=== PATIENT | male | born 1965 | race Caucasian/White ===

== ENCOUNTER 2023-07-16 12:34 | Emergency (ER) | payer OTHER, SELFPAY ==
[2023-07-16 12:43] VITALS: BP 152/94
[2023-07-16 13:15] VITALS: BMI 33.5
[2023-07-16 13:18] VITALS: BP 150/86
[2023-07-16 13:18] LABS: % Basophils 0.9 % (0-2); % Eosinophils 3.9 % (0-6); % Immature Granulocytes 0.3 % (0-0.5); % Lymphocytes 33.1 % (20.5-51.1); % Monocytes 11.3 % (1.7-9.3); % Neutrophils 50.5 % (42.2-75.2); Absolute Basophils 0.1 10^3/uL (0-0.2); Absolute Eosinophils 0.3 10^3/uL (0-0.7); Absolute Lymphocytes 2.1 10^3/uL (1.2-3.4); Absolute Monocytes 0.7 10^3/uL (0.1-0.6); Absolute Neutrophils 3.3 10^3/uL (1.4-6.5); Hemoglobin 15.3 g/dL (13.0-18.0); Mean Corp Hgb Conc. 35.6 g/dL (33.0-37.0); Mean Corpuscular Hgb 32.3 pg (27.0-31.0); Mean Corpuscular Volume 90.7 fL (80.0-94.0); Mean Platelet Volume 9.6 fL (7.4-10.4); Nucleated Red Blood Cells % 0 % (-); Platelet Count 221 10^3/uL (130-400); Red Blood Cell Count 4.74 10^6/uL (4.70-6.10); Red Cell Dist. Width 11.8 % (11.5-14.5); White Blood Cell Count 6.4 10^3/uL (4.8-10.8)
[2023-07-16 13:27] LABS: ALT (SGPT) 32 U/L (0-50); AST (SGOT) 29 U/L (17-59); Albumin 4.4 g/dl (3.5-5.0); Alkaline Phosphatase 39 U/L (38-126); Blood Urea Nitrogen 14 mg/dl (9-20); Calcium 10.4 mg/dl (8.4-10.2); Carbon Dioxide 28 mmol/L (22-30); Chloride 104 mmol/L (98-107); Estimated Creatinine Clearance > 125 ml/min; Glucose 97 mg/dl (70-99); Potassium 4.3 mmol/L (3.5-5.1); Sodium 139 mmol/L (135-145); Total Bilirubin 0.6 mg/dl (0.2-1.3); Total Protein 7.3 g/dl (6.3-8.2); eGFR > 60.00
[2023-07-16 13:29] LABS: Troponin I < 0.012 ng/ml
[2023-07-16 13:37] VITALS: BP 142/96
[2023-07-16 14:00] VITALS: BP 138/86
[2023-07-16 14:02] LABS: D-Dimer 1.88 ug/mlFEU (0.00-0.50)
--- NOTE | 2023-07-16 14:25 | ED.GENMED ---
History of Present Illness
General
Chief Complaint: Chest Pain
Source: patient and family (2 daughters at bedside providing some of the history)
Exam Limitations: none
Time Seen by Provider: 07/16/23 13:11
Nursing documentation reviewed up to this point in time: agreed with
Travel History
Have you had any contact with someone who has COVID-19?: No
Do you have any symptoms of coronavirus? Fever > 100 degrees, chills, cough, shortness of breath, sore throat, loss of taste or smell, muscle aches, or headache?: No
History of Present Illness
History of Present Illness:
57 yo male with hx of factor V Leiden, PE at age 32, HTN, HLD presents for chest tightness off and on for 3 weeks. Daughters say they feel his chest pain has progressed to more frequently as they note him holding his chest frequently and getting
red in the face. Patient walks several miles a day and is in denial of the severity of his chest pain as daughters call him out on it. He does have a history of GERD and takes Tums when he needs it.
He is attributing his chest pains to recent stress at work and the fact that his sister earlier today of an island of lung cancer.
Patient denies shortness of breath.
Past History
Past History
ED Past Medical History: HTN, Hypercholesterolemia and Other (Factor V Leiden, pulmonary embolus age 32, DVT)
ED Past Surgical History: Orthopedic
Social History
Tobacco: Non-smoker
Personal:
Living: alone
Review of Systems
Review of Systems
Allergies reviewed?: Yes
All Other Systems: ROS reviewed and negative except as documented in HPI and ROS
Constitutional: Denies fever or fatigue
Respiratory: Denies cough or trouble breathing
Cardiac: Reports chest pain; Denies palpitations or syncope
ABD/GI: Denies abdominal pain, nausea or vomiting
: Denies dysuria or difficulty voiding
Musculoskeletal: Reports no symptoms (denies pain in legs/calves)
Skin: Reports no symptoms
Neurological: Reports no symptoms
Phy Exam
Physical Exam
Physical Exam:
GENERAL: No acute distress. A&Ox3.
CONSTITUTIONAL: Afebrile.
EYES: PERRL, conjunctivae normal
ENMT: moist mucus membranes, Pharynx nl
RESPIRATORY: Regular respirations, nonlabored, lungs clear.
CARDIOVASCULAR: Regular rate and rhythm, no murmurs, no rubs.
GI: Soft, nontender, normal BS
MUSCULOSKELETAL: Moves with ease. Well perfused.
SKIN: Warm, dry, pink
PSYCH: Normal mood and affect. Well kept, interactive and appropriate
NEUROLOGIC: Awake, alert and oriented. No focal neurological deficits
Scores
Heart Score for Chest Pain Patients
STEMI patient?: No
History: Moderately Suspicious
ECG: Normal
Age: >45 - <65 years
Risk Factors: 1 or 2 Risk Factors
Troponin: </= Normal Limit
Heart Score for Chest Pain Patients: 3
Heart Score Risk: 2.5% MACE over next 6 weeks
Course
Orders/Labs/Results
Orders:
Orders
07/16/23 12:36
Electrocardiogram (*1) Urgent
Reason for Study: Chest Pain
EKG- Treatment ONCE
07/16/23 12:57
Complete Blood Count/With Diff Urgent
Comprehensive Metabolic Panel Urgent
Troponin I Urgent
07/16/23 13:35
CR Chest - 2 Views Urgent
Comment:
Reason For Exam: chest pains
07/16/23 13:39
D-Dimer Urgent
07/16/23 14:56
Urinalysis Reflex To Culture Urgent
Date Specimen was Collected: 07/16/23
Time Specimen was Collected: 14:54
Urine Microscopic Reflex Cult Urgent
07/16/23 15:09
CT Chest Pe Study Urgent
Comment:
Reason For Exam: chest pain, elevated dimer
Abnormal Lab Results
07/16/23 07/16/23 07/16/23
12:57 13:39 14:56
MCH 32.3 H pg
(27.0-31.0)
Absolute Monos (auto) 0.7 H 10^3/uL
(0.1-0.6)
Monocytes % 11.3 H %
(1.7-9.3)
D-Dimer 1.88 H ug/mlFEU
(0.00-0.50)
Calcium 10.4 H mg/dl
(8.4-10.2)
Ur Occult Blood Reflex Trace A
(Negative)
07/16/23 12:57
07/16/23 12:57
Vital Signs
Initial and Last Documented VS:
Initial Vital Signs
Temp Pulse Resp BP Pulse Ox
98.2 F 68 18 152/94 97
07/16/23 12:43 07/16/23 12:43 07/16/23 12:43 07/16/23 12:43 07/16/23 12:43
Last Documented Vital Signs
Temp Pulse Resp BP Pulse Ox
98.2 F 75 19 138/86 96
07/16/23 12:43 07/16/23 16:15 07/16/23 16:15 07/16/23 14:00 07/16/23 16:00
MDM/Problems Addressed
Differential Diagnosis Includes:
RI, Angina, PE
MDM/Problems Addressed:
57 yo male with hx of factor V Leiden, PE at age 32, HTN, HLD presents for chest tightness off and on for 3 weeks. Daughters say they feel his chest pain has progressed to more frequently as they note him holding his chest frequently and getting
red in the face. Patient walks several miles a day and is in denial of the severity of his chest pain as daughters call him out on it. He does have a history of GERD and takes Tums when he needs it.
He is attributing his chest pains to recent stress at work and the fact that his sister earlier today of an island of lung cancer.
Patient denies shortness of breath.
VSS
EKG: NSR
1:30 pm
Pt remains stable, comfortable
CBC normal
CMP normal
Troponin WNL
D dimer elevated 1.88
CXR NAD
5:[address] PE study radiology report read: No pulmonary embolism, normal
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
In further discussion with family, the patient is not anticoagulated as he has heterozygous, not homozygous factor B Leiden and takes a baby aspirin
His daughter made an appointment to see his line cleaner at [place] tomorrow
Pt is stable for discharge
Copies of EKG, CXR, CT report and labs sent with pt.
*Critical Care Note
Total Time (30-74mins, 75-104mins- exclusive of procedures): Not Applicable
ED Attending Note
-
Portions of this chart may have been created with voice recognition software.� Occasional wrong word or��sound alike� substitutions may have occurred due to the inherent limitations of voice recognition software.
Discharge Plan
Departure
Patient Disposition: Home (Routine Discharge)
Date of Disposition: 07/16/23
Time of Disposition: 17:56
Patient with high blood pressure during this ER visit?: No
Condition: Good
Discharge Problem:
Atypical chest pain
Instructions: Acid Reflux and GERD in Adults (DC), Chest Pain
Referrals:
[facility] [Other] - Tomorrow
Adolfo Tesfaye MD [Family Provider] -
Activity Restrictions/Additional Instructions:
As we discussed, keep your appointment with your line cleaner tomorrow.
Your workup here today shows nothing worrisome.
Interventions
Interventions:
*Risk Screen - Suicide Last Done: 07/16/23 13:15
*General Assessment Last Done: 07/16/23 13:15
*Neglect/Abuse Screening Last Done: 07/16/23 13:15
ED- Fall Risk Assessment Last Done: 07/16/23 13:15
*ED COVID-19 Vaccine History Last Done: 07/16/23 13:15
*Nursing Disposition Last Done: 07/16/23 18:14
ED- Cardiac Assessment Last Done: 07/16/23 13:15
Discharge Date and Time
Discharge Date/Time: 07/16/23 18:15
Print Language: CHINESE
[2023-07-16 15:15] LABS: Urine Albumin Negative (Neg - Trace); Urine Bilirubin Negative (Negative); Urine Character Clear (Clear); Urine Color Yellow; Urine Glucose Negative (Negative); Urine Ketone Negative (Negative); Urine Leukocyte Negative (Negative); Urine Nitrite Negative (Negative); Urine Occult Blood Trace (Negative); Urine Urobilinogen Negative (Neg - 1+)
[2023-07-16 15:24] LABS: Urine Mucus Few
[2023-07-16 15:25] LABS: Urine Hyaline Cast 0-2 /LPF (0-2); Urine Red Blood Cell 0-2 /HPF (0-2); Urine Squamous Cell 0-2 /LPF (Few); Urine White Cell 0-2 /HPF (0-5)
== END 2023-07-16 18:15 | disposition home or self-care (01) ==
LOC: EMR 12:34
PROVIDERS: Emergency Medicine; Registered Nurse; EMERGENCY PHYSICIAN Emergency Medicine; FAMILY PHYSICIAN Internal Medicine
DX: R07.89 Other chest pain (principal); D68.51 Activated protein C resistance; I10 Essential (primary) hypertension; Z63.4 Disappearance and death of family member; E78.00 Pure hypercholesterolemia, unspecified; Z56.6 Other physical and mental strain related to work; K21.9 Gastro-esophageal reflux disease without esophagitis; Z86.718 Personal history of other venous thrombosis and embolism; Z86.711 Personal history of pulmonary embolism
CPT/HCPCS: 99285; 71046; 71275; 80053; 81003; 81015; 84484; 85025; 85379; 93005; Q9967

== ENCOUNTER 2023-07-28 08:33 | Emergency (ER) | payer OTHER, SELFPAY ==
[2023-07-28 08:34] VITALS: BP 121/82
[2023-07-28 08:38] VITALS: BP 135/83
[2023-07-28 09:04] VITALS: BP 126/76
--- NOTE | 2023-07-28 09:13 | ED.GENMED ---
History of Present Illness
General
Chief Complaint: Throat Problem
Source: patient and family
Exam Limitations: none
Time Seen by Provider: 07/28/23 09:00
Nursing documentation reviewed up to this point in time: agreed with
History of Present Illness
History of Present Illness:
57-year-old male presents emergency room complaining of a lump in his throat that comes up when he coughs and feels like it blocks his airway. He states is not food or mucus. This began at 7 AM. Takes blood pressure medicines but does not know
the name of them. He had a stress test at [facility] this week.
Past History
Past History
ED Past Medical History: HTN, Hypercholesterolemia and Other (Factor V Leiden, pulmonary embolus age 32, DVT)
ED Past Surgical History: Orthopedic
Social History
Tobacco: Non-smoker
Alcohol: Occasional
Drug: None
Personal:
Living: alone
Review of Systems
Review of Systems
Allergies reviewed?: Yes
All Other Systems: Not applicable
Constitutional: Reports no symptoms
EENT: Reports other (Throat swelling)
Respiratory: Reports no symptoms
Cardiac: Reports no symptoms
ABD/GI: Reports no symptoms
: Reports no symptoms
Musculoskeletal: Reports no symptoms
Skin: Reports no symptoms
Neurological: Reports no symptoms
Endocrine: Reports no symptoms
Hematologic/Lymphatic: Reports no symptoms
Psychiatric: Reports no symptoms
Phy Exam
Physical Exam
Physical Exam:
Physical Exam
General: no apparent distress, not acutely ill
Neck: supple. no meningeal signs. normal posterior pharynx
Heart: s1/s2 regular rate and rhythm, no murmur. equal radial
pulses.
HEENT: Pupils equal round reactive to light, EOMI, mild uvular edema
Lungs: no acute respiratory distress. clear bilaterally
Abdomen: normal bowel sounds. not tender. no CVAT
Neuro: alert and oriented. no focal neurological deficits cranial nerves II through XII intact
Skin: no rash
Psychiatric: well kept. interactive and cooperative
Extremities: no edema. no calf tenderness. negative homans. good distal pulses
Course
Orders/Labs/Results
Orders:
Orders
07/28/23 09:10
CT Neck With Iv Contrast Urgent
Comment:
Reason For Exam: throat swelling, uvular edema
Cardiac Monitoring- Treatment ONCE
IV Insert/Care/Rem.- Treatment PRN
Dexamethasone Sod Phosphate [Decadron] 10 mg IV NOW STA
Diphenhydramine [Benadryl] 25 mg IV NOW STA
Famotidine [Pepcid] 20 mg IV NOW STA
Pulse Ox/cont/shift [RESP] Stat
Quantity: 1
07/28/23 09:19
Basic Metabolic Panel Urgent
Complete Blood Count/With Diff Urgent
Abnormal Lab Results
07/28/23
09:19
MCH 32.3 H pg
(27.0-31.0)
Neutrophils % 37.3 L %
(42.2-75.2)
Monocytes % 10.9 H %
(1.7-9.3)
Eosinophils % 10.5 H %
(0-6)
07/28/23 09:19
07/28/23 09:19
Vital Signs
Initial and Last Documented VS:
Initial Vital Signs
Temp Pulse Resp BP Pulse Ox
98.9 F 80 22 121/82 97
07/28/23 08:34 07/28/23 08:34 07/28/23 08:34 07/28/23 08:34 07/28/23 08:34
Last Documented Vital Signs
Temp Pulse Resp BP Pulse Ox
98.8 F 72 17 125/76 96
07/28/23 08:38 07/28/23 11:15 07/28/23 11:15 07/28/23 11:10 07/28/23 11:15
MDM/Problems Addressed
Differential Diagnosis Includes:
Tonsillar abscess, angioedema
MDM/Problems Addressed:
57-year-old male with angioedema, improved after observation, IV Decadron and Benadryl. Stable for discharge. Patient to discontinue lisinopril use.
Chronic conditions affecting care: HTN
Acute Exacerbation and/or Progression of Chronic Illness: HTN
*Radiology
Radiology exam reviewed: radiology read reviewed (CT neck shows mild angioedema)
*Pulse Oximetry
Patient hypoxic: no
*EKG
Interpreted by ED Provider?: NA
*[employer] Interpretation
Rate: [employer]- N/A
*Critical Care Note
Total Time (30-74mins, 75-104mins- exclusive of procedures): Not Applicable
Patient Management
Social determinants of health affecting care: Living situation
Escalation/DeEscalation of care consider admission/obs:
admit not indicated
ED Attending Note
-
Portions of this chart may have been created with voice recognition software.� Occasional wrong word or��sound alike� substitutions may have occurred due to the inherent limitations of voice recognition software.
Discharge Plan
Departure
Patient Disposition: Home (Routine Discharge)
Date of Disposition: 07/28/23
Time of Disposition: 12:09
Patient with high blood pressure during this ER visit?: Yes
Condition: Good
Discharge Problem:
Angioedema
Instructions: Angioedema, BLOOD PRESSURE
Prescriptions:
New
pantoprazole [Protonix] 40 mg tablet,delayed release (DR/EC)
40 mg PO DAILY Qty: 30 0RF
prednisone 50 mg tablet
50 mg PO DAILY Qty: 5 0RF
Referrals:
Adolfo Tesfaye MD [Family Provider] - Call in 1-3 days for appt
Interventions
Interventions:
*Risk Screen - Suicide Last Done: 07/28/23 09:06
*General Assessment Last Done: 07/28/23 08:38
*Neglect/Abuse Screening Last Done: 07/28/23 09:06
ED- Fall Risk Assessment Last Done: 07/28/23 13:13
*ED COVID-19 Vaccine History Last Done: 07/28/23 08:38
*Nursing Disposition Last Done: 07/28/23 13:13
ED-EENT Assessment Last Done: 07/28/23 09:09
ED- Pulmonary Assessment Last Done: 07/28/23 09:06
Discharge Date and Time
Discharge Date/Time: 07/28/23 13:14
Print Language: FAROESE
[2023-07-28] MEDS: DECADRON 10 MG IV (09:14)
[2023-07-28] MEDS: BENADRYL 25 MG IV (09:15)
[2023-07-28] MEDS: PEPCID 20 MG IV (09:15)
[2023-07-28 09:19] VITALS: BP 140/88
[2023-07-28 09:32] LABS: % Basophils 0.9 % (0-2); % Eosinophils 10.5 % (0-6); % Immature Granulocytes 0.4 % (0-0.5); % Monocytes 10.9 % (1.7-9.3); % Neutrophils 37.3 % (42.2-75.2); Absolute Basophils 0.1 10^3/uL (0-0.2); Absolute Eosinophils 0.6 10^3/uL (0-0.7); Absolute Lymphocytes 2.1 10^3/uL (1.2-3.4); Absolute Monocytes 0.6 10^3/uL (0.1-0.6); Hematocrit 45.6 % (39.0-52.0); Hemoglobin 15.8 g/dL (13.0-18.0); Mean Corp Hgb Conc. 34.6 g/dL (33.0-37.0); Mean Corpuscular Hgb 32.3 pg (27.0-31.0); Mean Corpuscular Volume 93.3 fL (80.0-94.0); Mean Platelet Volume 9.6 fL (7.4-10.4); Nucleated Red Blood Cells % 0 % (-); Platelet Count 194 10^3/uL (130-400); Red Blood Cell Count 4.89 10^6/uL (4.70-6.10); Red Cell Dist. Width 11.8 % (11.5-14.5); White Blood Cell Count 5.3 10^3/uL (4.8-10.8)
[2023-07-28 10:00] VITALS: BP 123/87
[2023-07-28 10:00] LABS: Blood Urea Nitrogen 14 mg/dl (9-20); Calcium 9.9 mg/dl (8.4-10.2); Carbon Dioxide 25 mmol/L (22-30); Chloride 107 mmol/L (98-107); Glucose 96 mg/dl (70-99); Sodium 141 mmol/L (135-145); eGFR > 60.00
[2023-07-28 11:10] VITALS: BP 125/76
== END 2023-07-28 13:14 | disposition home or self-care (01) ==
LOC: EMR 08:33
PROVIDERS: EMERGENCY PHYSICIAN Emergency Medicine; FAMILY PHYSICIAN Internal Medicine
DX: T78.3XXA Angioneurotic edema, initial encounter (principal); I10 Essential (primary) hypertension; E78.00 Pure hypercholesterolemia, unspecified; D68.51 Activated protein C resistance; Z86.711 Personal history of pulmonary embolism; Z86.718 Personal history of other venous thrombosis and embolism; Z79.899 Other long term (current) drug therapy
CPT/HCPCS: 99285; 96374; 96375 ×2; 70491; 80048; 85025; Q9967

== ENCOUNTER 2024-01-24 15:31 | Day surgery (SDC) | payer OTHER, SELFPAY ==
[2024-01-24] VITALS (14 sets, daily range): BP systolic 128–172; BP diastolic 67–97; BMI 33.5
--- NOTE | 2024-01-24 09:34 | ED.GENMED ---
History of Present Illness
General
Chief Complaint: Flank Pain
Source: patient
Exam Limitations: none
Time Seen by Provider: 01/24/24 09:24
Nursing documentation reviewed up to this point in time: agreed with
History of Present Illness
History of Present Illness:
58-year-old male with left flank pain for the past 3 weeks. No fevers. He has a history of kidney stones in the past.
Past History
Past History
ED Past Medical History: HTN, Hypercholesterolemia and Other (Factor V Leiden, pulmonary embolus age 32, DVT)
ED Past Surgical History: Orthopedic
Social History
Tobacco: Non-smoker
Alcohol: Occasional
Drug: None
Personal:
Living: alone
Review of Systems
Review of Systems
Allergies reviewed?: Yes
All Other Systems: Not applicable
Constitutional: Reports no symptoms
EENT: Reports no symptoms
Respiratory: Reports no symptoms
Cardiac: Reports no symptoms
ABD/GI: Reports no symptoms
: Reports flank pain
Musculoskeletal: Reports no symptoms
Skin: Reports no symptoms
Neurological: Reports no symptoms
Endocrine: Reports no symptoms
Hematologic/Lymphatic: Reports no symptoms
Psychiatric: Reports no symptoms
Phy Exam
Physical Exam
Physical Exam:
Physical Exam
General: Febrile, appears uncomfortable
Neck: supple. no meningeal signs. normal posterior pharynx
Heart: s1/s2 regular rate and rhythm, no murmur. equal radial
pulses.
HEENT: Pupils equal round reactive to light, EOMI
Lungs: no acute respiratory distress. clear bilaterally
Abdomen: normal bowel sounds. not tender. no CVAT
Neuro: alert and oriented. no focal neurological deficits cranial nerves II through XII intact
Skin: no rash
Psychiatric: well kept. interactive and cooperative
Extremities: no edema. no calf tenderness. negative homans. good distal pulses
Course
Orders/Labs/Results
Orders:
Orders
01/24/24 09:33
CT Abd/pel Without Iv Or Oral Urgent
Comment:
Reason For Exam: left flank pain 3 weeks
01/24/24 09:46
Complete Blood Count/With Diff Urgent
Urinalysis Reflex To Culture Urgent
Date Specimen was Collected: 01/24/24
Time Specimen was Collected: 09:35
01/24/24 Lunch
NPO
Reason for opting out of Realtime [employer]er order writing: Provider Decision
Allow oral meds: No
Allow clear liquids: No
NPO with Ice Chips: No
01/24/24 10:09
Ketorolac [Toradol] 15 mg IV NOW STA
01/24/24 10:20
Comprehensive Metabolic Panel Urgent
01/24/24 14:37
HYDROmorphone [Dilaudid] 1 mg IV Q3HPRN PRN
Abnormal Lab Results
01/24/24 01/24/24
09:46 10:20
MCH 32.4 H pg
(27.0-31.0)
Absolute Monos (auto) 0.7 H 10^3/uL
(0.1-0.6)
Monocytes % 12.4 H %
(1.7-9.3)
Glucose 114 H mg/dl
(70-99)
Alkaline Phosphatase 35 L U/L
(38-126)
01/24/24 09:46
01/24/24 10:20
Vital Signs
Initial and Last Documented VS:
Initial Vital Signs
Temp Pulse Resp BP Pulse Ox
97.9 F 75 16 172/97 98
01/24/24 08:17 01/24/24 08:17 01/24/24 08:17 01/24/24 08:17 01/24/24 08:17
Last Documented Vital Signs
Temp Pulse Resp BP Pulse Ox
97.9 F 64 15 138/90 99
01/24/24 08:17 01/24/24 14:00 01/24/24 14:00 01/24/24 14:00 01/24/24 14:00
MDM/Problems Addressed
Differential Diagnosis Includes:
Urinary tract infection, ureteral obstruction
MDM/Problems Addressed:
58-year-old male with left ureteral calculus, taken to OR by Dr. Walter for stent. No signs UTI
Chronic conditions affecting care: HTN
*Radiology
Radiology exam reviewed: radiology read reviewed (CT scan shows 4 mm stone at left UPJ)
*Pulse Oximetry
Patient hypoxic: no
*Professor Of Environmental Science Interpretation
Rate: Professor Of Environmental Science- N/A
*Critical Care Note
Total Time (30-74mins, 75-104mins- exclusive of procedures): 30
comment:
Critical care statement: A total of 30 minutes of critical care time was provided for this patient. This includes management of unstable vital signs, evaluation of the patient at bedside, reviewing the patient's pertinent medical records, discussion
with consultants, review of old EKGs and review of pertinent medical records. This time with separate from time utilized to perform the aforementioned documented procedures
Patient Management
Social determinants of health affecting care: Living situation and Strong social support
Discussion with other providers: Warehouse Worker 2Nd Shift (Urologist)
Escalation/DeEscalation of care consider admission/obs:
Admission to operating room indicated
ED Attending Note
-
Portions of this chart may have been created with voice recognition software.� Occasional wrong word or��sound alike� substitutions may have occurred due to the inherent limitations of voice recognition software.
Discharge Plan
Departure
Patient Disposition: OR
Date of Disposition: 01/24/24
Time of Disposition: 13:00
Admit to: OR
Presentation/result/management discussed w/ accepting MD/DO: Dr. Walter, urology
Patient with high blood pressure during this ER visit?: Yes
Condition: Good
Discharge Problem:
Calculus of proximal left ureter
Prescriptions:
No Action
losartan 50 mg Tablet
25 mg PO QPM
aspirin 81 mg Tablet,Delayed Release (Dr/Ec)
81 mg PO QPM
[place] 3 Fish Oil 684-1,200 mg Capsule,Delayed Release(Dr/Ec)
1 cap PO DAILY
Referrals:
Adolfo Tesfaye MD [Family Provider] -
Interventions
Interventions:
*Risk Screen - Suicide Last Done: 01/24/24 08:17
*General Assessment Last Done: 01/24/24 15:30
*Neglect/Abuse Screening Last Done: 01/24/24 08:17
ED- Fall Risk Assessment Last Done: 01/24/24 15:30
*ED COVID-19 Vaccine History Last Done: 01/24/24 09:34
*Nursing Disposition Last Done: 01/24/24 15:30
FK-Kvmthl-Edgbwfrenn Assessment Last Done: 01/24/24 09:35
ED-Male Genitourinary Assessment Last Done: 01/24/24 09:35
Discharge Date and Time
Discharge Date/Time: 01/24/24 15:31
Print Language: TAMAZIGHT
[2024-01-24 09:59] LABS: % Basophils 1.2 % (0-2); % Eosinophils 5.2 % (0-6); % Immature Granulocytes 0.3 % (0-0.5); % Lymphocytes 30.9 % (20.5-51.1); % Monocytes 12.4 % (1.7-9.3); Absolute Basophils 0.1 10^3/uL (0-0.2); Absolute Eosinophils 0.3 10^3/uL (0-0.7); Absolute Lymphocytes 1.8 10^3/uL (1.2-3.4); Absolute Monocytes 0.7 10^3/uL (0.1-0.6); Absolute Neutrophils 2.9 10^3/uL (1.4-6.5); Hematocrit 45.1 % (39.0-52.0); Hemoglobin 15.6 g/dL (13.0-18.0); Mean Corp Hgb Conc. 34.6 g/dL (33.0-37.0); Mean Corpuscular Hgb 32.4 pg (27.0-31.0); Mean Corpuscular Volume 93.6 fL (80.0-94.0); Mean Platelet Volume 9.7 fL (7.4-10.4); Nucleated Red Blood Cells % 0 % (-); Platelet Count 240 10^3/uL (130-400); Red Blood Cell Count 4.82 10^6/uL (4.70-6.10); White Blood Cell Count 5.7 10^3/uL (4.8-10.8)
[2024-01-24] MEDS: TORADOL 15 MG IV (10:24)
[2024-01-24 10:44] LABS: Urine Albumin Negative (Neg - Trace); Urine Bilirubin Negative (Negative); Urine Character Clear (Clear); Urine Color Yellow; Urine Glucose Negative (Negative); Urine Ketone Negative (Negative); Urine Leukocyte Negative (Negative); Urine Nitrite Negative (Negative); Urine Occult Blood Negative (Negative); Urine Urobilinogen Negative (Neg - 1+); Urine pH 6.5 (5.0-9.0)
[2024-01-24 10:51] LABS: ALT (SGPT) 44 U/L (0-50); AST (SGOT) 41 U/L (17-59); Albumin 4.8 g/dl (3.5-5.0); Alkaline Phosphatase 35 U/L (38-126); Blood Urea Nitrogen 13 mg/dl (9-20); Carbon Dioxide 24 mmol/L (22-30); Chloride 104 mmol/L (98-107); Estimated Creatinine Clearance > 125 ml/min; Glucose 114 mg/dl (70-99); Potassium 4.6 mmol/L (3.5-5.1); Sodium 137 mmol/L (135-145); Total Bilirubin 1.1 mg/dl (0.2-1.3); Total Protein 7.7 g/dl (6.3-8.2); eGFR > 60.00
--- NOTE | 2024-01-24 15:47 | HP.FOC2 ---
Focused History & Physical
Chief Complaint
HPI:
Chief Complaint:
left flank pain
HPI / Indication for Planned Procedure:
pt presents with 3 weeks hx of left renal colic
ct shows stone at left upj
pain has been difficult to control
Relevant Past Medical History: Other (dvt/kidney stones)
Relevant Social History: Negative
Relevant Family History: Negative
Relevant Past Surgical History: Positive for (carpal tunnel/shoulder surgery/ureteroscopy and stent)
Review of Systems
Review of Pertinent Systems: All Systems Negative Except for the Following Positives (flank pain)
Medication
See Medication form for detailed medications: Yes
Medication List (including Herbals & OTC):
aspirin 81 mg tablet,delayed release 81 mg PO QPM 01/24/24
losartan 50 mg tablet 25 mg PO QPM 01/24/24
omega-3 fatty acids-fish oil 684 mg-1,200 mg capsule,delayed release 1 cap PO DAILY 01/24/24
Medications Reviewed: Yes
Allergies and Reactions
Patient has Allergies: No
Noted Allergies and Reactions:
Allergy/AdvReac Type Severity Reaction Status Date / Time
No Known Allergies Allergy Verified 01/24/24 08:18
Pertinent Physical Exam
All Other Systems: Negative
Head/Neck: Normal
Lungs: Normal
Heart: Normal
Abdomen: Normal
Extremities: Normal
Neurological: Normal
Diagnosis / Assessment
stone
Plan / Procedure
OR for stent/possible ureteroscopy
risks, benefits, alternatives and disabilities reviewed
Anesthesia/Sedation to be done by Anesthesia Provider: Yes
--- NOTE | 2024-01-24 17:10 | W.IMMPOSTOP ---
Surgical Immed Post Op Note
-
Primary Surgeon:
susan
Assisting Surgeon:
Pre-op Diagnosis:
left ureteral stone- upj
Post-op Diagnosis:
left ureteral stone with upj scar/obstruction
Procedure Performed:
cysto/left retrograde/dilation of upj/laser litho and stent
Anesthesia Type:
gen
Specimen / Cultures:
none
Estimated Blood Loss:
2cc
Complications:
none
Operative Findings:
very stenotic/scarred left upj
dilated
stone fragmented
stent placed
for discharge tonight- f/u 2 weeks for stent removal
[2024-01-24] MEDS: FLOMAX 0.4 MG PO (17:42)
[2024-01-24] MEDS: Pyridium 200 MG PO (17:42)
== END 2024-01-24 19:10 | disposition home or self-care (01) ==
LOC: SDS 15:31
PROVIDERS: EMERGENCY PHYSICIAN Emergency Medicine; FAMILY PHYSICIAN Internal Medicine
DX: N20.2 Calculus of kidney with calculus of ureter (principal)
CPT/HCPCS: 52356; 74176; 74420; 76000; 80053; 81003; 85025; 96374; 99291; C1894; C2617

== ENCOUNTER 2024-02-02 06:02 | Inpatient (IN) | payer OTHER, SELFPAY ==
[2024-02-01] VITALS (9 sets, daily range): BP systolic 87–165; BP diastolic 54–94; BMI 32.8
--- NOTE | 2024-02-01 20:28 | ED.GENMED ---
ED Provider Triage
<Jose Manuel Gloria Jr., PA-C - Last Filed: 02/02/24 15:35>
-
Patient seen by provider in Triage?: Seen in Triage
Attestation: A medical screening examination has been initiated by a qualified medical provider. Based on the assessment performed at this time, it has been determined that an emergent medical condition may exist and the patient has been informed
that further medical evaluation and possible additional diagnostic testing may be needed.
HPI: 58-year-old male presenting to the emergency department concerns of central chest pain with radiation to the right arm prior to arrival. This seemed to happen after having a few alcoholic drinks. Did vomit 1 time. Denies diaphoresis or
shortness of breath. Does not remote history of PE and apparent history of factor V Leiden. Concerning this plan for troponin chest x-ray labs and D-dimer concerning history of factor V Leiden history of PE.
GENERAL: Alert , in no apparent distress
EYE: No visual abnormalities.
NECK: Trachea midline
ENT: No visible abnormalities.
LUNGS: No acute respiratory distress
NEUROLOGICAL: Alert and oriented
SKIN: Skin intact. No visible changes.
MUSCULOSKELETAL: Moving extremities normally
PSYCH: Normal and appropriate interaction.
This is a medical evaluation conducted in person to initiate diagnostic evaluation and provide initial therapeutics. Please see further documentation by the treating clinician.
History of Present Illness
<Jose Manuel Gloria Jr., PA-C - Last Filed: 02/02/24 15:35>
General
Chief Complaint: Chest Pain
Time Seen by Provider: 02/01/24 23:12
<Rosanna Jimenez MD - Last Filed: 02/07/24 08:47>
General
Source: patient and family
History of Present Illness
History of Present Illness:
58-year-old male who states that around 7 PM he got the gradual onset of chest 'tightness' associated with vomiting and discomfort in his right arm. Symptoms lasted about an hour or so and then resolved completely. Then, just a few moments ago,
the pain returned, same quality, in the center of his chest without radiation, exacerbating, relieving factors. Is not pleuritic in nature. He has noted mild diaphoresis at this time as well. He denies nausea, vomiting, dyspnea, back pain, neck
pain, jaw pain, leg swelling, or other complaints.
Past History
<Jose Manuel Gloria Jr., PA-C - Last Filed: 02/02/24 15:35>
Past History
ED Past Medical History: HTN, Hypercholesterolemia and Other (Factor V Leiden, pulmonary embolus age 32, DVT)
ED Past Surgical History: Orthopedic
Social History
Tobacco: Non-smoker
Alcohol: Occasional
Drug: None
Personal:
Living: alone
Phy Exam
<Rosanna Jimenez MD - Last Filed: 02/07/24 08:47>
Physical Exam
Physical Exam:
GENERAL: Alert , appears slightly uncomfortable
EYE: pupils equal and reactive
NECK: Supple, no significant adenopathy.
ENT: o/p clr, mmm.
CARDIAC: Regular rate and rhythm .
LUNGS: Clear breath sounds bilaterally, no acute respiratory distress, no wheezes/rales/rhonchi
ABDOMEN: Soft, without focal tenderness, no r/g, no cvat
NEUROLOGICAL: Alert and oriented, no focal neuro deficits
SKIN: Warm and slightly diaphoretic, skin intact.
MUSCULOSKELETAL: No edema, well perfused.
PSYCH: Normal and appropriate interaction.
Scores
<Rosanna Jimenez MD - Last Filed: 02/07/24 08:47>
Heart Score for Chest Pain Patients
STEMI patient?: Not applicable
Course
<Jose Manuel Gloria Jr., PA-C - Last Filed: 02/02/24 15:35>
Orders/Labs/Results
Orders:
Orders
02/01/24 20:09
EKG [Electrocardiogram (*1)] Urgent
Reason for Study: Chest Pain
02/01/24 20:10
EKG- Treatment ONCE
02/01/24 20:27
Electrocardiogram (*1) Stat
Reason for Study: Other
Other Reason for Exam: chest pain
EKG- Treatment ONCE
02/01/24 21:01
Complete Blood Count/With Diff Urgent
Comprehensive Metabolic Panel Urgent
D-Dimer Urgent
Magnesium Urgent
NT-proBNP Urgent
Troponin I Urgent
02/01/24 23:14
EKG- Treatment ONCE
02/01/24 23:21
Aspirin 325 mg PO NOW STA
Nitroglycerin Sublingual [Nitrostat (Sublingual)] 0.4 mg .ROUTE .STK-MED ONE
Nitroglycerin Sublingual [Nitrostat (Sublingual)] 0.4 mg SL [id number] PRN
02/01/24 23:55
Troponin I Urgent
02/02/24 00:24
Electrocardiogram (*1) Urgent
Reason for Study: Chest Pain
02/02/24 00:25
Morphine Sulfate 4 mg IV NOW STA
02/02/24 00:45
CT Chest Angio W/wo Iv Contras Urgent
Comment:
Reason For Exam: cp to back, t/c dissection
02/02/24 00:46
Nitroglycerin 100 mg/250 ml [Nitroglycerin Premix] 100 mg in 250 ml IV NOW
Initial dose in mcg/min, then titrate:: 5
Titrate to keep:: SBP < 160 mmHg
Titrate by mcg/min:: 5 mcg/min, may increase by 10 mcg/min if dose > 20 mcg/min
Frequency of titrations (minutes):: every 3-5 minutes
Maximum dose in mcg/min:: 200
Begin to taper infusion when:: Remained at goal for 2hrs
Taper by mcg/min:: 5 mcg/min
Frequency of taper (minutes) if patient maintains goal:: 30
Taper to off?: Yes
If infusion off & no longer maintaining goal:: Contact Provider
02/02/24 01:55
Morphine Sulfate 4 mg IV NOW STA
02/02/24 02:30
Electrocardiogram (*1) Urgent
Reason for Study: Chest Pain
02/02/24 02:31
EKG- Treatment ONCE
02/02/24 03:58
Troponin I Urgent
02/02/24 04:02
Morphine Sulfate 4 mg .ROUTE .STK-MED ONE
02/02/24 04:06
Morphine Sulfate 4 mg IV NOW STA
02/02/24 05:46
Admit/Transfer Patient As Directed
Co-Sign Provider:
Level of Care: Inpatient admission
Assign to:: IVU
Physician / Group: Irene
Diagnosis: ACS
Reason for Hospitalization: ACS
Expected length of stay greater than two midnights?: Yes
ELOS- Estimated Length of Stay in days: 3
I certify the patient meets the requirements for IP care: Yes
PRN Pain Medication Management As Directed
May give lesser potent ordered pain med per pt: Yes
preference::
Protocol:: Medication orders for pain may be administered in a
manner that supports deferring to patient preference
when the pt is:
- Requesting an ordered lesser potent pain medication.
Least to most potent pain medications are defined
as: acetaminophen < NSAID < tramadol < opioids
(morphine, oxycodone, hydromorphone).
- Requesting a lesser dose of the same medication IF
ORDERED.
- Requesting a less intrusive route of administration
if both routes are prescribed by the provider (PO <
IV).
02/02/24 05:47
Code Status As Directed
Resuscitation Status: Full Code
02/02/24 05:49
Heparin 4,000 units IV NOW STA
Heparin Protocol- PTT Orders As Directed
PTT per Heparin protocol: -Obtain CBC and baseline PTT - if not already collected.
-Obtain PTT 6 hours from start of infusion. Then, every 6 hours until 2 consecutive
PTT's are therapeutic. Then, PTT Daily.
-With each rate change, obtain PTT every 6 hours until 2 consecutive PTT's are
therapeutic. Then, PTT Daily.
Notify MD As Directed
Notify physician if: PTT is greater than or equal to 200.
02/02/24 Breakfast
NPO
Allow oral meds: Yes
Allow clear liquids: Sips of Clears
Heparin 56620 Units/250 ml 25,000 units in 250 ml IV PER PROTOCOL
Weight to be used for heparin protocol in kilograms (kg):: 106.594
Protocol:: Cardiac Tx/Acute Coronary
PTT Goal Range to be used:: PTT 73 to 111 seconds
Order type:: Initial
INITIAL Infusion Dose (UNITS/KG/hr) & then follow protocol:: 12 units/kg/hr
Infusion Dose in UNITS/hr & then follow protocol (UNITS/hr):: 1,000
INFUSION RATE in mL/hr & then follow protocol (mL/hr):: 10
PTT less than or equal to 64 seconds:: Increase rate by 200 units/hr (+ 2 mL/hr)
PTT 64.1 to 72.9 seconds:: Increase rate by 100 units/hr (+ 1 mL/hr)
PTT 73 to 111 seconds:: Target Range. No change in rate.
PTT 111.1 to 130.9 seconds:: Decrease rate by 100 units/hr (- 1 mL/hr)
PTT 131 to 199.9 seconds:: HOLD for 1 hr. Then decrease rate by 200 units/hr (- 2 mL/hr)
PTT greater than or equal to 200 seconds:: HOLD for 2 hrs & Notify Provider. Then decrease by 200 units/hr (-
2 mL/hr)
Lab follow-up:: Each change, PTT q6h until 2 consecutive are therapeutic. Then PTT
daily.
02/02/24 06:27
Complete Blood Count/No Diff Urgent
Comment: Obtain baseline before beginning heparin infusion if not already collected
PTT Urgent
Comment: Obtain baseline before beginning heparin infusion if not already collected
02/02/24 08:03
Acetaminophen [Tylenol] 650 mg PO Q4HPRN PRN
Aspirin Chewable [Low Strength Aspirin] 81 mg PO DAILY
Metoprolol Xl [Toprol Xl] 25 mg PO BID
Morphine Sulfate 2 mg IV Q4HPRN PRN
Nitroglycerin 100 mg/250 ml [Nitroglycerin Premix] 100 mg in 250 ml IV PER PROTOCOL
Currently infusing. Continue current dose and titrate:: Yes
Titrate to keep:: Chest Pain Free
Titrate by mcg/min:: 5 mcg/min, may increase by 10 mcg/min if dose > 20 mcg/min
Frequency of titrations (minutes):: every 3-5 minutes
Maximum dose in mcg/min:: 200
Begin to taper infusion when:: Remained at goal for 2hrs
Taper by mcg/min:: 5 mcg/min
Frequency of taper (minutes) if patient maintains goal:: 30
Taper to off?: Yes
If infusion off & no longer maintaining goal:: Contact Provider
02/02/24 08:03
CARDIOLOGY CONSULT Routine
Consulting Provider: Richard Cardenas
Was physician already notified: No
Reason for consult: ACS
Consult Notification Routine
Specialty to Notify: Cardiology
Date consulting provider notified: 02/02/24
Time consulting provider notified: 08:16
Notified:: Provider
Activity As Directed
Activity Level: Bedrest
EKG with chest pain [ECG as needed] As Directed
ECG as needed for:: Chest Pain
I/O [Intake/ Output] As Directed
Frequency: Per unit guidelines
Vital Signs As Directed
Frequency: Per unit guidelines
Weight As Directed
Frequency: Daily
Oxygen Therapy [O2 Therapy] [RESP] Routine
Titrate/Wean O2 to maintain O2 sat greater than (%): 94
DX Deep Vein Thrombosis Video Routine
02/02/24 12:31
Glycohemoglobin (HgbA1c) Routine
02/02/24 18:00
Atorvastatin [Lipitor] 40 mg PO QPM
Losartan [Cozaar] 25 mg PO QPM
02/03/24 03:18
Basic Metabolic Panel IN AM
Cardiovascular Evaluation IN AM
02/03/24 03:19
Complete Blood Count/No Diff IN AM
02/03/24 06:00
EKG [Electrocardiogram (*1)] IN AM
Reason for Study: Chest Pain
02/04/24 04:44
Complete Blood Count/No Diff Q2D
Comment: Notify MD if platelet count is <130,000 or decreases by 50% from baseline
Abnormal Lab Results
02/01/24 02/02/24
21:01 03:58
RBC 4.64 L 10^6/uL
(4.70-6.10)
MCH 33.0 H pg
(27.0-31.0)
Abs Immat Gran (auto) 0.1 H 10^3/uL
(0-0.05)
Absolute Monos (auto) 0.9 H 10^3/uL
(0.1-0.6)
Immature Gran % 1.4 H %
(0-0.5)
Monocytes % 14.2 H %
(1.7-9.3)
Glucose 190 H mg/dl
(70-99)
Troponin I 0.090 H* D ng/ml
02/01/24 21:01
02/01/24 21:01
Vital Signs
Initial and Last Documented VS:
Initial Vital Signs
Temp Pulse Resp BP Pulse Ox
98.1 F 101 18 165/94 99
02/01/24 20:27 02/01/24 20:27 02/01/24 20:27 02/01/24 20:27 02/01/24 20:27
Last Documented Vital Signs
Temp Pulse Resp BP Pulse Ox
97.5 F 78 18 108/62 95
02/05/24 11:09 02/05/24 12:00 02/05/24 11:09 02/05/24 11:04 02/05/24 11:09
<Rosanna Jimenez MD - Last Filed: 02/07/24 08:47>
Orders/Labs/Results
Orders:
Orders
02/01/24 20:09
EKG [Electrocardiogram (*1)] Urgent
Reason for Study: Chest Pain
02/01/24 20:10
EKG- Treatment ONCE
02/01/24 20:27
Electrocardiogram (*1) Stat
Reason for Study: Other
Other Reason for Exam: chest pain
EKG- Treatment ONCE
02/01/24 21:01
Complete Blood Count/With Diff Urgent
Comprehensive Metabolic Panel Urgent
D-Dimer Urgent
Magnesium Urgent
NT-proBNP Urgent
Troponin I Urgent
02/01/24 23:14
EKG- Treatment ONCE
02/01/24 23:21
Aspirin 325 mg PO NOW STA
Nitroglycerin Sublingual [Nitrostat (Sublingual)] 0.4 mg .ROUTE .STK-MED ONE
Nitroglycerin Sublingual [Nitrostat (Sublingual)] 0.4 mg SL [id number] PRN
02/01/24 23:55
Troponin I Urgent
02/02/24 00:24
Electrocardiogram (*1) Urgent
Reason for Study: Chest Pain
02/02/24 00:25
Morphine Sulfate 4 mg IV NOW STA
02/02/24 00:45
CT Chest Angio W/wo Iv Contras Urgent
Comment:
Reason For Exam: cp to back, t/c dissection
02/02/24 00:46
Nitroglycerin 100 mg/250 ml [Nitroglycerin Premix] 100 mg in 250 ml IV NOW
Initial dose in mcg/min, then titrate:: 5
Titrate to keep:: SBP < 160 mmHg
Titrate by mcg/min:: 5 mcg/min, may increase by 10 mcg/min if dose > 20 mcg/min
Frequency of titrations (minutes):: every 3-5 minutes
Maximum dose in mcg/min:: 200
Begin to taper infusion when:: Remained at goal for 2hrs
Taper by mcg/min:: 5 mcg/min
Frequency of taper (minutes) if patient maintains goal:: 30
Taper to off?: Yes
If infusion off & no longer maintaining goal:: Contact Provider
02/02/24 01:55
Morphine Sulfate 4 mg IV NOW STA
02/02/24 02:30
Electrocardiogram (*1) Urgent
Reason for Study: Chest Pain
02/02/24 02:31
EKG- Treatment ONCE
02/02/24 03:58
Troponin I Urgent
02/02/24 04:02
Morphine Sulfate 4 mg .ROUTE .STK-MED ONE
02/02/24 04:06
Morphine Sulfate 4 mg IV NOW STA
02/02/24 05:46
Admit/Transfer Patient As Directed
Co-Sign Provider:
Level of Care: Inpatient admission
Assign to:: IVU
Physician / Group: Irene
Diagnosis: ACS
Reason for Hospitalization: ACS
Expected length of stay greater than two midnights?: Yes
ELOS- Estimated Length of Stay in days: 3
I certify the patient meets the requirements for IP care: Yes
PRN Pain Medication Management As Directed
May give lesser potent ordered pain med per pt: Yes
preference::
Protocol:: Medication orders for pain may be administered in a
manner that supports deferring to patient preference
when the pt is:
- Requesting an ordered lesser potent pain medication.
Least to most potent pain medications are defined
as: acetaminophen < NSAID < tramadol < opioids
(morphine, oxycodone, hydromorphone).
- Requesting a lesser dose of the same medication IF
ORDERED.
- Requesting a less intrusive route of administration
if both routes are prescribed by the provider (PO <
IV).
02/02/24 05:47
Code Status As Directed
Resuscitation Status: Full Code
02/02/24 05:49
Heparin 4,000 units IV NOW STA
Heparin Protocol- PTT Orders As Directed
PTT per Heparin protocol: -Obtain CBC and baseline PTT - if not already collected.
-Obtain PTT 6 hours from start of infusion. Then, every 6 hours until 2 consecutive
PTT's are therapeutic. Then, PTT Daily.
-With each rate change, obtain PTT every 6 hours until 2 consecutive PTT's are
therapeutic. Then, PTT Daily.
Notify MD As Directed
Notify physician if: PTT is greater than or equal to 200.
02/02/24 Breakfast
NPO
Allow oral meds: Yes
Allow clear liquids: Sips of Clears
Heparin 24603 Units/250 ml 25,000 units in 250 ml IV PER PROTOCOL
Weight to be used for heparin protocol in kilograms (kg):: 106.594
Protocol:: Cardiac Tx/Acute Coronary
PTT Goal Range to be used:: PTT 73 to 111 seconds
Order type:: Initial
INITIAL Infusion Dose (UNITS/KG/hr) & then follow protocol:: 12 units/kg/hr
Infusion Dose in UNITS/hr & then follow protocol (UNITS/hr):: 1,000
INFUSION RATE in mL/hr & then follow protocol (mL/hr):: 10
PTT less than or equal to 64 seconds:: Increase rate by 200 units/hr (+ 2 mL/hr)
PTT 64.1 to 72.9 seconds:: Increase rate by 100 units/hr (+ 1 mL/hr)
PTT 73 to 111 seconds:: Target Range. No change in rate.
PTT 111.1 to 130.9 seconds:: Decrease rate by 100 units/hr (- 1 mL/hr)
PTT 131 to 199.9 seconds:: HOLD for 1 hr. Then decrease rate by 200 units/hr (- 2 mL/hr)
PTT greater than or equal to 200 seconds:: HOLD for 2 hrs & Notify Provider. Then decrease by 200 units/hr (-
2 mL/hr)
Lab follow-up:: Each change, PTT q6h until 2 consecutive are therapeutic. Then PTT
daily.
02/02/24 06:27
Complete Blood Count/No Diff Urgent
Comment: Obtain baseline before beginning heparin infusion if not already collected
PTT Urgent
Comment: Obtain baseline before beginning heparin infusion if not already collected
02/02/24 08:03
Acetaminophen [Tylenol] 650 mg PO Q4HPRN PRN
Aspirin Chewable [Low Strength Aspirin] 81 mg PO DAILY
Metoprolol Xl [Toprol Xl] 25 mg PO BID
Morphine Sulfate 2 mg IV Q4HPRN PRN
Nitroglycerin 100 mg/250 ml [Nitroglycerin Premix] 100 mg in 250 ml IV PER PROTOCOL
Currently infusing. Continue current dose and titrate:: Yes
Titrate to keep:: Chest Pain Free
Titrate by mcg/min:: 5 mcg/min, may increase by 10 mcg/min if dose > 20 mcg/min
Frequency of titrations (minutes):: every 3-5 minutes
Maximum dose in mcg/min:: 200
Begin to taper infusion when:: Remained at goal for 2hrs
Taper by mcg/min:: 5 mcg/min
Frequency of taper (minutes) if patient maintains goal:: 30
Taper to off?: Yes
If infusion off & no longer maintaining goal:: Contact Provider
02/02/24 08:03
CARDIOLOGY CONSULT Routine
Consulting Provider: Richard Cardenas
Was physician already notified: No
Reason for consult: ACS
Consult Notification Routine
Specialty to Notify: Cardiology
Date consulting provider notified: 02/02/24
Time consulting provider notified: 08:16
Notified:: Provider
Activity As Directed
Activity Level: Bedrest
EKG with chest pain [ECG as needed] As Directed
ECG as needed for:: Chest Pain
I/O [Intake/ Output] As Directed
Frequency: Per unit guidelines
Vital Signs As Directed
Frequency: Per unit guidelines
Weight As Directed
Frequency: Daily
Oxygen Therapy [O2 Therapy] [RESP] Routine
Titrate/Wean O2 to maintain O2 sat greater than (%): 94
DX Deep Vein Thrombosis Video Routine
02/02/24 12:31
Glycohemoglobin (HgbA1c) Routine
02/02/24 18:00
Atorvastatin [Lipitor] 40 mg PO QPM
Losartan [Cozaar] 25 mg PO QPM
02/03/24 03:18
Basic Metabolic Panel IN AM
Cardiovascular Evaluation IN AM
02/03/24 03:19
Complete Blood Count/No Diff IN AM
02/03/24 06:00
EKG [Electrocardiogram (*1)] IN AM
Reason for Study: Chest Pain
02/04/24 04:44
Complete Blood Count/No Diff Q2D
Comment: Notify MD if platelet count is <130,000 or decreases by 50% from baseline
Abnormal Lab Results
02/01/24 02/02/24
21:01 03:58
RBC 4.64 L 10^6/uL
(4.70-6.10)
MCH 33.0 H pg
(27.0-31.0)
Abs Immat Gran (auto) 0.1 H 10^3/uL
(0-0.05)
Absolute Monos (auto) 0.9 H 10^3/uL
(0.1-0.6)
Immature Gran % 1.4 H %
(0-0.5)
Monocytes % 14.2 H %
(1.7-9.3)
Glucose 190 H mg/dl
(70-99)
Troponin I 0.090 H* D ng/ml
02/01/24 21:01
02/01/24 21:01
Vital Signs
Initial and Last Documented VS:
Initial Vital Signs
Temp Pulse Resp BP Pulse Ox
98.1 F 101 18 165/94 99
02/01/24 20:27 02/01/24 20:27 02/01/24 20:27 02/01/24 20:27 02/01/24 20:27
Last Documented Vital Signs
Temp Pulse Resp BP Pulse Ox
97.5 F 78 18 108/62 95
02/05/24 11:09 02/05/24 12:00 02/05/24 11:09 02/05/24 11:04 02/05/24 11:09
<Rosanna Jimenez MD - Last Filed: 02/07/24 08:47>
*Critical Care Note
Total Time (30-74mins, 75-104mins- exclusive of procedures): 30
<Rosanna Jimenez MD - Last Filed: 02/07/24 08:47>
Update Note
Update Note:
Patient presents to the Emergency Department with chest pain
Number and Complexity of Problems Addressed at the Encounter
� Chronic conditions affecting care:
� Acute Exacerbation and/or Progression of Chronic Illness:
� Differential Diagnosis includes: But not limited to musculoskeletal, pleurisy, ACS, PE, etc. etc.
Amount and/or Complexity of Data to be Reviewed and Analyzed
� I performed an independent evaluation of and my interpretation is:
EKG: Read by me, x 2, normal sinus rhythm, no acute ischemia, no STEMI
CT: read by vision, neg for dissectino or pe
Xrays:
Laboratory Studies: Generally unremarkable, first troponin 0.027
Other:
� Review of other/old records reveals: Patient is status post ureter stent placement January 23 of this month
� Clinical information was obtained by an independent historian: Daughter who is at bedside
� Prescriptions/Medications Considered but not given:
� Further testing considered but not performed:
Risk of Complications and/or Morbidity or Mortality of Patient Management
� Social determinants of health affecting care:
� Discussion with other providers (PCP, Hospitalists, Consultants, etc):
� Escalation of care including admission/observation vs risk of discharge considered: ECG at the time of pain just a few moments ago not consistent with STEMI. Patient being given aspirin and nitro, repeat troponin sent,
frequent reassessment
12:24 AM patient given first dose of nitroglycerin, blood pressure dropped, we needed to pause on further doses until IV access could be obtained, IV fluids started, blood pressure now normal and received a total of 3 doses of sublingual nitro with
transient partial relief of symptoms but still continues with chest pain. Appears uncomfortable. Will repeat ECG at this time, medicate with morphine, continue to reassess
253am multiple reassessments, difficult to fully eliminate cp, but is improved. ecg times 4 without stemi/acute changes. Awaiting repeat trop. nitro gtt running. case d/w dr bonilla for admission, continue trend troponin, etc. CTA neg for diss/pe
ED Attending Note
<Jose Manuel Gloria Jr., DIANN - Last Filed: 02/02/24 15:35>
-
Portions of this chart may have been created with voice recognition software.� Occasional wrong word or��sound alike� substitutions may have occurred due to the inherent limitations of voice recognition software.
Discharge Plan
Departure
Patient Disposition: Admit
Date of Disposition: 02/02/24
Time of Disposition: 02:53
Admit to: Telemetry
Admit to doctor: irene
Presentation/result/management discussed w/ accepting MD/DO: Hospitalist
Condition: Fair
Discharge Problem:
Chest pain
Interventions
Interventions:
*Risk Screen - Suicide Last Done: 02/02/24 07:59
*General Assessment Last Done: 02/01/24 23:04
*Neglect/Abuse Screening Last Done: 02/02/24 07:59
ED- Fall Risk Assessment Last Done: 02/02/24 07:59
*ED COVID-19 Vaccine History Last Done: 02/01/24 23:04
*Nursing Disposition Last Done: 02/02/24 07:59
ED- Cardiac Assessment Last Done: 02/01/24 23:18
Discharge Date and Time
Discharge Date/Time: 02/02/24 08:59
[2024-02-01 21:07] LABS: % Basophils 0.9 % (0-2); % Eosinophils 4.6 % (0-6); % Immature Granulocytes 1.4 % (0-0.5); % Lymphocytes 26.1 % (20.5-51.1); % Monocytes 14.2 % (1.7-9.3); % Neutrophils 52.8 % (42.2-75.2); Absolute Basophils 0.1 10^3/uL (0-0.2); Absolute Eosinophils 0.3 10^3/uL (0-0.7); Absolute Immature Granulocytes 0.1 10^3/uL (0-0.05); Absolute Lymphocytes 1.7 10^3/uL (1.2-3.4); Absolute Monocytes 0.9 10^3/uL (0.1-0.6); Absolute Neutrophils 3.3 10^3/uL (1.4-6.5); Hematocrit 42.1 % (39.0-52.0); Hemoglobin 15.3 g/dL (13.0-18.0); Mean Corp Hgb Conc. 36.3 g/dL (33.0-37.0); Mean Corpuscular Volume 90.7 fL (80.0-94.0); Mean Platelet Volume 9.2 fL (7.4-10.4); Nucleated Red Blood Cells % 0 % (-); Platelet Count 228 10^3/uL (130-400); Red Blood Cell Count 4.64 10^6/uL (4.70-6.10); White Blood Cell Count 6.3 10^3/uL (4.8-10.8)
[2024-02-01 21:22] LABS: D-Dimer 0.46 ug/mlFEU (0.00-0.50)
[2024-02-01 21:28] LABS: ALT (SGPT) 49 U/L (0-50); AST (SGOT) 29 U/L (17-59); Albumin 4.6 g/dl (3.5-5.0); Alkaline Phosphatase 44 U/L (38-126); Blood Urea Nitrogen 19 mg/dl (9-20); Calcium 9.9 mg/dl (8.4-10.2); Carbon Dioxide 22 mmol/L (22-30); Chloride 102 mmol/L (98-107); Glucose 190 mg/dl (70-99); Magnesium 2.1 mg/dl (1.6-2.3); Potassium 4.6 mmol/L (3.5-5.1); Sodium 136 mmol/L (135-145); Total Bilirubin 0.4 mg/dl (0.2-1.3); Total Protein 7.3 g/dl (6.3-8.2); eGFR > 60.00
[2024-02-01 21:31] LABS: NT-proBNP < 20.0 pg/ml; Troponin I 0.027 ng/ml
[2024-02-01] MEDS: NITROSTAT (SUBLINGUAL) 0.4 MG SL (23:24)
[2024-02-01] MEDS: ASPIRIN 325 MG PO (23:35)
[2024-02-02] VITALS (81 sets, daily range): BP systolic 108–173; BP diastolic 57–118; BMI 34.8
[2024-02-02] MEDS: NITROSTAT (SUBLINGUAL) 0.4 MG SL ×2 (00:03→00:16)
[2024-02-02] MEDS: MORPHINE SULFATE 4 MG IV ×3 (00:33→04:06)
[2024-02-02] MEDS: NITROGLYCERIN PREMIX 250 IV (01:20)
--- NOTE | 2024-02-02 05:52 | HPS.HSE ---
Family Physician
-
Family Physician: Adolfo Tesfaye
Chief Complaint
-
Chest Pain
History of Present Illness
Patient is a 58y M with PMH significant for hypertension and kidney stones who presents to ED complaining of chest pain. Patient states that he started with chest pain this evening. Pain was quite severe in nature and prompted him to present to
the ED for further evaluation. Patient was noted to be quite uncomfortable here in the ED with persistent 10/10 chest pain / pressure. He was diaphoretic with some dyspnea. He had N/V x 2 episodes here in the ED (though this was following IV
contrast administration for CTA). Patient denies any prior history of similar symptoms.
He states that he was feeling well prior to onset of this pain this evening.
Patient was recently seen at for L ureteral stone and he underwent cysto and stent placement on 01/24/24. The stent remains in place.
Patient notes that he had a stress test done at [facility] about 3 months ago and this was 'OK'.
No personal history of AL, heart disease, etc.
Medical History
Past Medical History
Past Medical History: Reports Other
Additional Past Medical History:
Hypertension
Nephrolithiasis
Past Surgical History: Reports Other
Additional Past Surgical History:
Left Shoulder Surgery
Cysto / L Ureteral Stent Placement (01/24/24)
Social History
Tobacco: Non-smoker
Alcohol: Occasional
Drug: None
Family History
Family History: Other (Father: CAD)
Allergies / Home Medications
Allergies reflects when Allergies were last updated in [email or web address]
Home Medications with original date entered in [email or web address]
Allergy/Medication List:
Allergies
Allergy/AdvReac Type Severity Reaction Status Date / Time
lisinopril AdvReac Severe Anaphylaxis Verified 02/01/24 23:03
Home Medications
aspirin 81 mg tablet,delayed release 81 mg PO QPM 01/24/24
losartan 50 mg tablet 25 mg PO QPM 01/24/24
omega-3 fatty acids-fish oil 684 mg-1,200 mg capsule,delayed release 1 cap PO DAILY 01/24/24
Review of Systems
-
History Source: Patient
A 12 point ROS was completed and negative except as noted: Yes
Constitutional: Denies Fever or Chills
EENT: Denies Sore Throat
Respiratory: Reports Cough and Trouble Breathing; Denies Hemoptysis
Cardiac: Reports Chest Pain and Diaphoresis; Denies Palpitations or Syncope
Abdomen/GI: Reports Nausea and Vomiting; Denies Abdominal Pain or Diarrhea
: Denies Dysuria or Flank Pain
Musculoskeletal: Denies Joint Pain or Edema
Neurological: Denies Dizzy or Headache
Psych: Denies Depression or Anxiety
Physical Exam
Vital Signs
Vital Signs
Temp Pulse Resp BP Pulse Ox
98.1 F 79 20 159/95 99
02/01/24 20:27 02/02/24 05:30 02/02/24 05:30 02/02/24 05:30 02/01/24 20:27
Physical Exam
General: Other (58y M in no acute distress.)
HEENT: Moist mucous membranes and PERRLA
Respiratory: Clear; No Wheezes, Rales or Rhonchi
Cardiac: S1/S2 and Regular Rhythm; No Murmur
GI: Soft, Non Tender, Non Distended and Normal Bowel Sounds
Musculoskeletal: No Clubbing, No Cyanosis and No Edema
Neuro: AO x 3
Laboratory Results
-
02/01/24 21:01
Laboratory Results
Total Bilirubin 0.4 mg/dl (0.2-1.3) 02/01/24 21:01
AST 29 U/L (17-59) 02/01/24 21:01
ALT 49 U/L (0-50) 02/01/24 21:01
Alkaline Phosphatase 44 U/L (38-126) 02/01/24 21:01
Troponin I 0.090 ng/ml H* D 02/02/24 03:58
Impression/Plan
-
A/P: Patient is a 58y M with PMH significant for hypertension who presents to ED complaining of chest pain.
ACS / NSTEMI
- Admit for further evaluation and treatment.
- Patient with significant chest discomfort this evening - eventually improved after initiation of NTG gtt.
- Serial EKGs are unremarkable appearing.
- Troponin to 0.09 from initial value of 0.027.
- CTA chest done with no evidence of dissection or PE.
- IV heparin / IV NTG.
- Cardiology evaluation for additional recommendations / possible ischemic evaluation.
- ASA daily. Start beta-corazon and statin.
- Follow for any new / worsening symptoms.
Hypertensive Emergency
- BP elevation with associated chest pain and abnormal troponin.
- IV NTG as noted above and titrate as needed for improvement in BP control and symptoms.
- Add beta-corazon as noted and adjust med regimen as needed for BP control.
Nephrolithiasis
- s/p cysto with L ureteral stent placement on 01/24/24.
- Monitor for development of hematuria while on IV heparin / with stent in place.
DVT Prophylaxis: On IV Heparin
Code Status: Full
[2024-02-02 06:36] LABS: Hematocrit 40.2 % (39.0-52.0); Hemoglobin 14.1 g/dL (13.0-18.0); Mean Corp Hgb Conc. 35.1 g/dL (33.0-37.0); Mean Corpuscular Hgb 32.7 pg (27.0-31.0); Mean Corpuscular Volume 93.3 fL (80.0-94.0); Mean Platelet Volume 9.3 fL (7.4-10.4); Platelet Count 206 10^3/uL (130-400); Red Blood Cell Count 4.31 10^6/uL (4.70-6.10); White Blood Cell Count 8.1 10^3/uL (4.8-10.8)
[2024-02-02] MEDS: HEPARIN 4000 UNITS IV (06:36)
[2024-02-02] MEDS: HEPARIN 25000 UNITS/250 ML IV (06:40)
[2024-02-02 06:50] LABS: APTT 23.8 Sec (23.4-35.0)
--- NOTE | 2024-02-02 08:04 | W.PN.HOSP.TC ---
Today's Communication/Plan
-
see plan
Assessment / Plan
Assessment / Plan
A/P: Patient is a 58y M with PMH significant for hypertension who presents to ED complaining of chest pain.
ACS / NSTEMI
- Admit for further evaluation and treatment.
- Patient with significant chest discomfort this evening - eventually improved after initiation of NTG gtt - nitro gtt to be adjusted for chest pain
- Serial EKGs are unremarkable appearing.
- Troponin to 0.09 from initial value of 0.027.
- CTA chest done with no evidence of dissection or PE.
- IV heparin / IV NTG.
- Cardiology evaluation for additional recommendations / possible ischemic evaluation.
- ASA daily. Start beta-corazon and statin.
Hypertensive Emergency
- BP elevation with associated chest pain and abnormal troponin.
- IV NTG as noted above and titrate as needed for improvement in BP control and symptoms.
- Add beta-corazon as noted and adjust med regimen as needed for BP control.
Nephrolithiasis
- s/p cysto with L ureteral stent placement on 01/24/24.
- Monitor for development of hematuria while on IV heparin / with stent in place.
- I have sent a message to Urologist continuing education director to discuss case
DVT Prophylaxis: On IV Heparin
Code Status: Full
Anticipated Discharge: > 48 hours
Subjective/Interval History
-
Date of Service: February 02, 2024
seen upon arrival to the floor
states chest discomfort better but still mildly present
Objective Data
-
Labs:
Laboratory Results
02/01/24 02/02/24 02/02/24
21:01 06:27 06:42
WBC 6.3 8.1
Hgb 15.3 14.1
Hct 42.1 40.2
Plt Count 228 206
APTT 23.8 Pending
Sodium 136
Potassium 4.6
Chloride 102
Carbon Dioxide 22
BUN 19
Creatinine 1.0
Glucose 190 H
Calcium 9.9
Total Bilirubin 0.4
AST 29
ALT 49
Alkaline Phosphatase 44
02/02/24
12:45
WBC
Hgb
Hct
Plt Count
APTT Pending
Sodium
Potassium
Chloride
Carbon Dioxide
BUN
Creatinine
Glucose
Calcium
Total Bilirubin
AST
ALT
Alkaline Phosphatase
Vital Signs:
Vital Signs
Temp Pulse Resp BP Pulse Ox
98.1 F 87 15 149/92 99
02/01/24 20:27 02/02/24 06:50 02/02/24 06:50 02/02/24 06:50 02/01/24 20:27
Review of Systems
-
History Source: Patient
All other systems: Reviewed and negative
Physical Exam
-
General: No Apparent Distress, Conversant and Obese
Respiratory: Clear to Auscultation; Negative Wheezes
Cardiac: Regular Rhythm and S1/S2
GI: Soft and Nontender
Musculoskeletal: No Edema
Skin: Warm and Dry; Negative Rash
Neuro: AO x 3
Psych: Calm
Data Reviewed
-
Diagnostic Radiology: Report Reviewed by me
Labs: Labs Reviewed by me
--- NOTE | 2024-02-02 08:10 | PTCARENOTE ---
Received the patient from the ED in a stretcher. He is aaox3, vss, 95% on RA. NSR is noted on the monitor. He complains of chest tightness and rates it a 2/10 on scale. Heparin gtt is running at 1000 units/hr. Nitro gtt is running at 1.5ml/hr. I
oriented him to his room and his call jean is within reach.
--- NOTE | 2024-02-02 08:25 | PTCARENOTE ---
Addendum entered by Mayte Cordova RN 02/02/24 09:34:
2L of O2 placed on patient
Original Note:
Dr. Obando notified that the patient is on the floor. Nitro gtt increased to 20mcg/min per Dr. obando.
--- NOTE | 2024-02-02 08:32 | PTCARENOTE ---
The patient's history of MRSA was 25 years ago from his hernia repair.
--- NOTE | 2024-02-02 08:53 | CON.CAR ---
Consultation
Consultation Request
Date/Time Consultation Requested: February 02, 2024
Date/Time Consultation Performed: February 02, 2024
Requesting Provider: Hospitalist
Performing Provider: Darrius
Reason for Consultation: Chest pressure
Medical History
-
Chief Complaint: Chest pressure
History of Present Illness:
58-year-old male who has had substernal chest pressure radiating to his left shoulder which started approximately 8 PM last night after dinner. Waxing and waning. He has had exertional chest pressure over the last 3 to 4 months although not
completely typical which at times gets better with rest and at times comes on with minimal activity. He has been evaluated at [facility] with Dr. Wagner and has had stress testing approximately 3 months ago although I do not have
the records and he was told that the blood flow to the back of his heart was 85%. He does not report having an invasive catheterization. Presenting here he had elevated blood pressures with ongoing pain and was given aspirin, heparin drip, and IV
nitroglycerin at 10 mics with 2 out of 10 chest pain when I evaluated him. ECGs demonstrate nonspecific ST-T changes with upsloping ST segments with only minor changes from EKG to EKG which were personally reviewed. Troponin of 0.02-0.09. He does
appear uncomfortable when seen. He tells me that this left-sided substernal chest pressure was different from his renal colic pain which she had 2 weeks ago. He had a ureteral stent placed at that time and lithotripsy at that time with an
improvement in his renal colic immediately and he has not had significant hematuria. He tells me that his urine starts off mildly orange in the morning and clears throughout the day. Dr. Bennett from our hospitalist team had a preliminary discussion
with urology who stated that Plavix could be considered with his ureteral stent and the ureteral stent can be removed on Plavix.
Past Medical History
Past Medical History: HTN
Past Surgical History: Urological
Social History
Tobacco: Non-Smoker
Alcohol: Occasional
Drug: None
Personal:
Living: With Family
Employment: Employed
Family History
Family History: CAD
Allergies / Home Medications
Allergy/AdvReac Type Severity Reaction Status Date / Time
lisinopril AdvReac Severe Anaphylaxis Verified 02/01/24 23:03
�Medication �Instructions �Recorded �Confirmed �Type
aspirin 81 mg tablet,delayed 81 mg PO QPM 01/24/24 02/02/24 History
release
losartan 50 mg tablet 25 mg PO QPM 01/24/24 02/02/24 History
omega-3 fatty acids-fish oil 684 1 cap PO DAILY 01/24/24 02/02/24 History
mg-1,200 mg capsule,delayed release
Review of Systems
-
Unable to obtain full review of systems at this time due to: Other
All other systems: Negative unless noted
Constitutional: No Symptoms
EENT: No Symptoms
Respiratory: No Symptoms
Cardiac: Chest Pain
Abdomen/GI: No Symptoms
: No Symptoms
Neurological: No Symptoms
Endocrine: No Symptoms
Hematologic/Lymphatic: No Symptoms
Physical Exam
Vital Signs
Temp Pulse Resp BP Pulse Ox
98.1 F 87 18 149/92 96
02/02/24 08:14 02/02/24 06:50 02/02/24 08:14 02/02/24 06:50 02/02/24 08:14
Lab Results
02/02/24 06:27
02/01/24 21:01
Troponin I Cancelled 02/02/24 20:03
Qrp-[id number] Pept < 20.0 pg/ml 02/01/24 21:01
Physical Exam
General: Well Developed and Well Nourished
HEENT: Normocephalic
Respiratory: Clear
Cardiac: S1/S2 and Regular Rhythm
GI: Soft, Non Tender and Non Distended
Rectal: Deferred by Provider
Genito-urinary: Other
Musculoskeletal: No Clubbing and No Cyanosis
Skin: Warm and Dry
Neuro: Awake, Alert and Oriented
Hematologic/Lymphatic: No Lymphadenopathy
Psych: Calm
Impression / Plan
-
Impression:
Substernal chest pressure
NSTEMI
Recent ureteral stent 01/24/2024
Ureteral stones
Essential hypertension
Familial history of CAD
Mixed hyperlipidemia
Plan:
-I increased IV nitroglycerin at the bedside to see response to pain although he has 2 out of 10 chest pain on 10 mics of nitro currently. He has nonspecific ST-T changes on his ECG and mildly elevated but rising troponin.
-I will reassess response in 20 to 30 minutes to nitroglycerin.
-He is on IV heparin
-He has received aspirin
-Next troponin due at 10 AM
-Discussed with Dr. Bennett who has also had discussions with urology who have provided input regarding antiplatelet therapy and there is no contraindication to utilizing dual antiplatelet therapy including Plavix after communication with the on-call
urologist. The ureteral stent can be removed on Plavix as per discussion with the on-call urologist.
-His heart rate is in the 50s so we will hold off on beta-corazon therapy at this time
-Continue his outpatient antihypertensives
-He will require ischemic evaluation during this hospitalization. Timing will be dependent on his response to increased IV nitroglycerin and attempts to make him pain-free. Currently he is still having ongoing pain on IV nitroglycerin and will
reassess his response. If we cannot make him pain-free would perform left heart catheterization today. Otherwise if we can maintain him at pain-free would plan for February 03. Patient understands and agrees to this course of therapy.
-Discussed with bedside nursing.
Data Reviewed
-
EKG: Tracing Personally Visualized and interpreted
Radiology: Image Personally Visualized and interpreted
Labs: Labs Reviewed by me
Old Records: Requested
[2024-02-02] MEDS: LOW STRENGTH ASPIRIN 81 MG PO (08:54)
--- NOTE | 2024-02-02 08:56 | PTCARENOTE ---
Nitro gtt increased to 25mcg/min for chest pain of 1/10 on scale
[2024-02-02] MEDS: TOPROL XL 25 MG PO ×2 (09:52→19:54)
[2024-02-02 10:23] LABS: Urine Albumin Trace (Neg - Trace); Urine Bilirubin Negative (Negative); Urine Character Clear (Clear); Urine Color Yellow; Urine Glucose Trace (Negative); Urine Ketone Negative (Negative); Urine Leukocyte Trace (Negative); Urine Nitrite Negative (Negative); Urine Occult Blood 1+ (Negative); Urine Specific Gravity 1.015 (<1.030); Urine Urobilinogen Negative (Neg - 1+)
[2024-02-02 11:23] LABS: Urine Mucus Few
[2024-02-02 11:24] LABS: Urine Squamous Cell 0-2 /LPF (Few)
[2024-02-02 11:25] LABS: Urine Red Blood Cell 21-25 /HPF (0-2)
[2024-02-02] MEDS: TYLENOL 650 MG PO ×2 (11:39→20:49)
--- NOTE | 2024-02-02 11:48 | PTCARENOTE ---
The patient's daughter states that the patient takes supplements. He take Plaquex 3 times daily, Bol[place] 1 times daily. He states that these are prescribed by an holistic doctor.
He also states that he no longer takes Losartan, amlodipine was prescribed for him instead. However, he states that he hasn't taken the amlodipine in weeks.
--- NOTE | 2024-02-02 12:37 | W.PN.UPDATE ---
Update Note
Progress Note Update
Spoke with nursing. The patient is now pain-free on 25 mics of nitro glycerin drip and trending troponins with plan for left heart catheterization on Sunday unless he has repetitive pain.
[2024-02-02 14:11] LABS: Glycohemoglobin (HgbA1c) 5.9 % (4.0-5.6)
[2024-02-02] MEDS: LIPITOR PO ×2 (17:36→17:42)
[2024-02-02] MEDS: COZAAR 25 MG PO (17:36)
[2024-02-02] MEDS: PLAVIX 75 MG PO (17:36)
--- NOTE | 2024-02-02 17:41 | PTCARENOTE ---
The patient is chest pain free. He states that he feels like himself again. He did refuse his Lipitor stating that 'I get bad aches and pains with it.'
[2024-02-02 19:52] LABS: APTT 30.8 Sec (23.4-35.0)
[2024-02-03] VITALS (12 sets, daily range): BP systolic 102–123; BP diastolic 63–80; BMI 34.3
--- NOTE | 2024-02-03 00:06 | PTCARENOTE ---
Rec'd pt at change of shift. Pt pleasant, AAO*3, VSS, and in NSR on TELE monitor. Pt with chest pain rating pain as dull and 1/10 on the pain scale. Nitro infusing at 25 mcg per minute. Heparin infusing at 1400 u/hr. Pt updated and agreeable to
plan of care. Pt resting with call jean in reach.
[2024-02-03] MEDS: HEPARIN 25000 UNITS/250 ML IV ×2 (03:23→18:21)
[2024-02-03 03:45] LABS: Hematocrit 35.2 % (39.0-52.0); Hemoglobin 12.2 g/dL (13.0-18.0); Mean Corp Hgb Conc. 34.7 g/dL (33.0-37.0); Mean Corpuscular Hgb 32.2 pg (27.0-31.0); Mean Corpuscular Volume 92.9 fL (80.0-94.0); Mean Platelet Volume 9.5 fL (7.4-10.4); Platelet Count 193 10^3/uL (130-400); Red Blood Cell Count 3.79 10^6/uL (4.70-6.10); Red Cell Dist. Width 12.2 % (11.5-14.5); White Blood Cell Count 10.9 10^3/uL (4.8-10.8)
[2024-02-03 03:46] LABS: APTT 55.4 Sec (23.4-35.0)
[2024-02-03 03:58] LABS: Blood Urea Nitrogen 14 mg/dl (9-20); Calcium 9.6 mg/dl (8.4-10.2); Carbon Dioxide 27 mmol/L (22-30); Chloride 102 mmol/L (98-107); Estimated Creatinine Clearance > 125 ml/min; Glucose 143 mg/dl (70-99); HDL Cholesterol 59 mg/dl; LDL Cholesterol, Calculated 126 mg/dl; Potassium 4.5 mmol/L (3.5-5.1); Sodium 136 mmol/L (135-145); Total Cholesterol 216 mg/dl (50-199); Triglyceride 157 mg/dl (10-149); Very Low Density Lipoprotein 31 mg/dl (0-30); eGFR > 60.00
[2024-02-03] MEDS: TYLENOL 650 MG PO ×4 (04:34→20:10)
--- NOTE | 2024-02-03 04:57 | PTCARENOTE ---
Troponin from AM blood work resulted at 13.9. Pt denies any chest pain or chest discomfort. Heparin infusing at 1600 units per hour. Nitrogen infusing at 20mcg per minute. Dr Rizo notified via tiger text. Order for repeat troponin submitted
for 11 am. No new orders at this time. Pt agreed to report any new chest pain or discomfort immediately. Tylenol given for headache. Plan of care ongoing. Pt resting with call jean in reach.
[2024-02-03] MEDS: TOPROL XL 25 MG PO ×2 (07:40→19:32)
[2024-02-03] MEDS: LOW STRENGTH ASPIRIN 81 MG PO (07:40)
[2024-02-03] MEDS: PLAVIX 75 MG PO (07:40)
[2024-02-03] MEDS: NORVASC 5 MG PO (07:40)
[2024-02-03] MEDS: FLUSH (NSS) 2 FLUSH IV (07:41)
--- NOTE | 2024-02-03 07:48 | PTCARENOTE ---
While I was in to assess the patient, he c/o chest tightness across his upper chest and rated it a 1/10 on scale. I increased his nitro gtt to 25mcg/min. After I finished assessing him and giving him his medication, he stated that the tightness was
gone.
--- NOTE | 2024-02-03 08:04 | W.PN.HOSP.TC ---
Today's Communication/Plan
-
NPO after MN for Cath tomorrow
Assessment / Plan
Assessment / Plan
A/P: Patient is a 58y M with PMH significant for hypertension who presents to ED complaining of chest pain admitted for NSTEMI.
ACS / NSTEMI
- CTA chest done with no evidence of dissection or PE.
- Admit for further evaluation and treatment.
- Serial EKGs are unremarkable appearing.
- Troponin climbing, last value 13.9, continue to trend
- IV heparin / IV NTG gtt
- continue SECURITY MESSENGER aspirin daily
- new Start Metoprolol, Atorvastatin
- Plavix initiated
Hypertensive Emergency
- BP elevation with associated chest pain and abnormal troponin.
- IV NTG as noted above and titrate as needed for improvement in BP control and symptoms.
- Add beta-corazon as noted and adjust med regimen as needed for BP control.
- SBP 111 this AM
Nephrolithiasis
- s/p cysto with L ureteral stent placement on 01/24/24.
- Monitor for development of hematuria while on IV heparin / with stent in place.
- Discussed plan with Dr. Curiel who stated that stent can easily be removed in office while patient is on Plavix
DVT Prophylaxis: On IV Heparin
Code Status: Full
Anticipated Discharge: 24 - 48 hours
Subjective/Interval History
-
Date of Service: February 03, 2024
currently chest pain free
Objective Data
-
Labs:
Laboratory Results
02/03/24 02/03/24 02/03/24
03:18 03:19 10:00
WBC 10.9 H
Hgb 12.2 L
Hct 35.2 L
Plt Count 193
APTT 55.4 H Pending
Sodium 136
Potassium 4.5
Chloride 102
Carbon Dioxide 27
BUN 14
Creatinine 0.7
Glucose 143 H
Calcium 9.6
Vital Signs:
Vital Signs
Temp Pulse Resp BP Pulse Ox
97.8 F 71 18 111/78 96
02/03/24 07:38 02/03/24 07:45 02/03/24 07:38 02/03/24 07:45 02/03/24 07:38
I&O
02/02/24 02/03/24 02/04/24
06:59 06:59 06:59
Intake Total 360 / 360
Output Total 3025 / 3025
Balance -2665 / -2665
Review of Systems
-
History Source: Patient
All other systems: Reviewed and negative
Physical Exam
-
General: No Apparent Distress, Conversant and Obese
Respiratory: Clear to Auscultation; Negative Wheezes
Cardiac: Regular Rhythm and S1/S2
GI: Soft and Nontender
Musculoskeletal: No Edema
Skin: Warm and Dry; Negative Rash
Neuro: AO x 3
Psych: Calm
Data Reviewed
-
Diagnostic Radiology: Report Reviewed by me
Labs: Labs Reviewed by me
--- NOTE | 2024-02-03 08:48 | W.PN.CARDCBS ---
Today's Communication / Plan
-
Cath on February 03
Still trending troponins
Continue current nitroglycerin and do not wean until catheterization
Discussed with nursing
Dual antiplatelet therapy
Statin therapy
Impression / Plan
-
Impression:
Substernal chest pressure
NSTEMI
Recent ureteral stent 01/24/2024
Ureteral stones
Essential hypertension
Familial history of CAD
Mixed hyperlipidemia
Plan:
-I increased IV nitroglycerin at the bedside yesterday and he became pain-free at 25 mics of nitroglycerin. He did have a return of pain overnight with attempts to wean his nitroglycerin and is now again pain-free at 25 mics of nitroglycerin. I
did have a discussion with nursing that we should keep this level of nitroglycerin and only escalate at this time if he has any recurrent symptoms. I have a low threshold to proceed to cardiac catheterization and tentatively he is planned for
February 03 in a.m.
-He is on IV heparin
-He has received aspirin and I added dual antiplatelet therapy with Plavix yesterday
-Hopefully his troponin has peaked and is due for an 11 AM test today. When seen he is pain-free
-Discussed with Dr. Bennett who has also had discussions with urology who have provided input regarding antiplatelet therapy and there is no contraindication to utilizing dual antiplatelet therapy including Plavix after communication with the on-call
urologist. The ureteral stent can be removed on Plavix as per discussion with the on-call urologist.
-His heart rate is in the 50s so we will hold off on beta-corazon therapy at this time
-Continue his outpatient antihypertensives
-Discussed with bedside nursing.
Progress Note - Manager Program Management
Subjective
Date of Service: February 03, 2024
Pain-free when seen
Objective
Labs:
02/03/24 03:19
02/03/24 03:18
Labs
Hgb 12.2 g/dL (13.0-18.0) L 02/03/24 03:19
Hct 35.2 % (39.0-52.0) L 02/03/24 03:19
Plt Count 193 10^3/uL (130-400) 02/03/24 03:19
APTT 55.4 Sec (23.4-35.0) H 02/03/24 03:18
Sodium 136 mmol/L (135-145) 02/03/24 03:18
Potassium 4.5 mmol/L (3.5-5.1) 02/03/24 03:18
BUN 14 mg/dl (9-20) 02/03/24 03:18
Creatinine 0.7 mg/dL (0.7-1.3) 02/03/24 03:18
Glucose 143 mg/dl (70-99) H 02/03/24 03:18
Troponins
02/01/24 02/01/24 02/02/24
21:01 23:55 03:58
Troponin I 0.027 0.030 0.090 H* D
02/02/24 02/02/24 02/02/24
08:03 10:12 14:03
Troponin I Cancelled 2.870 H* D Cancelled
02/02/24 02/02/24 02/03/24
16:21 20:03 03:19
Troponin I 10.800 H* D Cancelled 13.900 H*
Vital Signs and I&O:
Vital Signs
Temp Pulse Resp BP Pulse Ox
97.8 F 75 18 114/69 96
02/03/24 07:38 02/03/24 08:30 02/03/24 07:38 02/03/24 08:30 02/03/24 07:38
Vital Signs
Temp Pulse Resp BP Pulse Ox
97.8 F 75 18 114/69 96
02/03/24 07:38 02/03/24 08:30 02/03/24 07:38 02/03/24 08:30 02/03/24 07:38
Intake & Output
02/01/24 02/02/24 02/03/24 02/04/24
06:59 06:59 06:59 06:59
Intake Total 360 / 360
Output Total 3025 / 3025 200 / 200
Balance -2665 / -2665 -200 / -200
Physical Exam
Physical Exam
����Physical Exam
���������������������General:��no apparent distress, not acutely ill
���������������������������Neck:��supple. no meningeal signs. normal psoterior pharynx
������������������������
���������������������������Heart:��s1/s2 regular rate and rhythm, no murmur. equal radial pulses.
��������������������������Lungs: ��no acute respiratory distress. clear bilaterally
����������������������Abdomen:�normal bowel sounds. not tender. no CVAT
��������������������������Neuro:��alert and oriented. no focal neurological deficits
������������������������������Skin: ��no rash
�����������������������Psychiatric:�well kept. interactive and cooperative
�����������������������Extremities:��no edema. no calf tenderness. negative homans. good distal pulses
��
�
[2024-02-03 08:56] LABS: Magnesium 2.1 mg/dl (1.6-2.3)
--- NOTE | 2024-02-03 11:23 | PTCARENOTE ---
The patient stated that he was having kidney pain. He rated it a 3/10 on scale. Tylenol given as ordered.
[2024-02-03 11:29] LABS: APTT 62.3 Sec (23.4-35.0)
[2024-02-03] MEDS: TUMS CHEWABLE TABLET 200 MG PO (13:03)
--- NOTE | 2024-02-03 13:05 | PTCARENOTE ---
The patient c/o and upset stomach after eating lunch. i reached out to Dr. Bennett. Neftaly ordered and given.
--- NOTE | 2024-02-03 15:07 | PTCARENOTE ---
The patient c/o a headache and rated it a 3/10 on scale. Tylenol given as ordered.
[2024-02-03] MEDS: LIPITOR PO (17:46)
[2024-02-03] MEDS: COZAAR 25 MG PO (17:46)
[2024-02-03 18:10] LABS: APTT 97.7 Sec (23.4-35.0)
[2024-02-03] MEDS: BENADRYL 25 MG PO (21:34)
[2024-02-03 23:45] LABS: APTT 95.6 Sec (23.4-35.0)
[2024-02-04] VITALS (15 sets, daily range): BP systolic 95–143; BP diastolic 59–97
--- NOTE | 2024-02-04 03:24 | PTCARENOTE ---
Rec'd pt at change of shift. Pt AAO*3, VSS, in NSR on TELE monitor, and pleasant. Pt reports mild headache, tylenol given for pain as ordered. Pt denies any care concerns or further discomfort. Pt aware of NPO status at midnight for cath in AM.
Heparin and nitro infusing (see flowsheet for full assessment). Pt declines any questions on plan of care and resting with call jean in reach. Plan of care ongoing.
--- NOTE | 2024-02-04 03:25 | PTCARENOTE ---
Rec'd pt at change of shift. Pt AAO*3, VSS, and in NSR on TELE monitor. Pt updated of plan of care and aware of possible discharge tomorrow, pending ct surgery. Pt denies any pain or discomfort. Heparin infusing currently (see flowsheet for full
assessment). Pt resting with call jean in reach.
[2024-02-04] MEDS: TYLENOL 650 MG PO ×3 (04:22→19:31)
[2024-02-04 05:18] LABS: Hematocrit 38.8 % (39.0-52.0); Hemoglobin 13.4 g/dL (13.0-18.0); Mean Corp Hgb Conc. 34.5 g/dL (33.0-37.0); Mean Corpuscular Hgb 32.7 pg (27.0-31.0); Mean Corpuscular Volume 94.6 fL (80.0-94.0); Mean Platelet Volume 9.7 fL (7.4-10.4); Platelet Count 190 10^3/uL (130-400); White Blood Cell Count 13.6 10^3/uL (4.8-10.8)
[2024-02-04 05:30] LABS: APTT 68.4 Sec (23.4-35.0)
[2024-02-04 05:44] LABS: Blood Urea Nitrogen 13 mg/dl (9-20); Calcium 9.6 mg/dl (8.4-10.2); Carbon Dioxide 24 mmol/L (22-30); Chloride 103 mmol/L (98-107); Estimated Creatinine Clearance > 125 ml/min; Glucose 122 mg/dl (70-99); Magnesium 2.3 mg/dl (1.6-2.3); Potassium 4.4 mmol/L (3.5-5.1); Sodium 136 mmol/L (135-145); eGFR > 60.00
[2024-02-04] MEDS: PLAVIX 75 MG PO (08:08)
[2024-02-04] MEDS: LOW STRENGTH ASPIRIN 81 MG PO (08:08)
--- NOTE | 2024-02-04 09:03 | PTCARENOTE ---
Pt left for biological lab technician. Report given to Jessie LEON. heparin gtt stopped.
--- NOTE | 2024-02-04 09:43 | ITS.CL.CATH ---
[facility] - Catheterization
Cardiac Catheterization
Procedure Report:
LEFT HEART CATHETERIZATION
Date of Procedure: February 04, 2024
Referring: Dr. Josemanuel Rizo
PROCEDURES:
1. Left heart catheterization, coronary angiogram.
2. Ultrasound-guided access
3. Failed attempt due to inability to wire subtotal occlusion in the mid LAD despite use of multiple wires and microcatheters.
INDICATION: NSTEMI
ACCESS: Right radial artery, 6 [place] sheath, under ultrasound guidance
HEMODYNAMICS : (mmHg)
AO (s/d) : 103/70
LV (s/d) : 104/14
LVEDP : 31
CORONARY FINDINGS
DOMINANCE: Right
LEFT MAIN: The left main artery is a large-caliber vessel with mild diffuse atherosclerotic plaque.
LEFT ANTERIOR DESCENDING: The left anterior descending artery is a medium to large caliber vessel which gives rise to 1 major branching diagonal branch. There is a subtotal occlusion in the mid LAD just distal to the diagonal branch where it is
moderately tortuous. Attempt was made to wire this vessel however despite wire escalation and use of multiple microcatheters, we feel to cross the lesion and the case was aborted.
CIRCUMFLEX: The left circumflex artery is a medium caliber vessel which gives rise to 2 major obtuse marginal branches. Mid left circumflex has eccentric 50 to 60% stenosis just proximal to OM 2.
RIGHT CORONARY ARTERY: The right coronary is a medium to large caliber, dominant vessel which gives rise to the right posterior descending artery and the right posterolateral system. There is a 70% mid RCA tubular stenosis. The RPDA is a small to
medium caliber vessel with diffuse up to 70% proximal stenosis.
Attempted coronary intervention: Additional heparin was given to maintain a therapeutic ACT throughout the case. The left coronary artery was selectively engaged using a 6 [place] EBU 3.75 guide catheter. Initially we tried wiring the mid LAD using
a 190 cm 0.014' run-through coronary wire however despite multiple passes, we could not advance this into the mid LAD lesion with ongoing prolapse of the wire. At this point we took this wire out and brought in a 300 cm ship pilot 50 through a fine
cross microcatheter and despite multiple passes and additional support from the microcatheter we could not navigate the tortuosity into the [place] LAD. Given significant tortuosity we decided to try a super cross 90 degree microcatheter to help
facilitate advancing the wire into the LAD. After multiple attempts we were able to navigate the initial bend at the level of the occlusion in the mid LAD however despite multiple passes we could not navigate across the lesion. We advanced the
super cross microcatheter for additional support into the mid LAD and even this did not provide adequate support to allow the ship pilot 50 to penetrate through the calcified lesion. At this point we made a final attempt using a Fielder XT with a R[employer]ER
band through the super cross parked in the mid LAD and despite multiple attempts we continued to feel not being able to penetrate the lesion. Patient experience 3-6 out of 10 chest pain with these last attempts and given we were persistently
feeling with radiation over 3 Gy we decided to abort and refer patient for consideration for coronary artery bypass grafting for revascularization given the lesion is behaving like a chronic total occlusion. Patient's pain had resolved at the end
of the case. No acute complications.
SEDATION: 130 minutes of procedural sedation was utilized. An independent emergency medical technician/driver was present to assist with and help manage the patient's level of consciousness and physiologic status.
RADIATION SUMMARY: Fluoro Time (min): 42.1, Dose (mGy): 3021.50, DAP (Gy.cm2) : 247.84
Closure Device: Vascular band over right radial artery, 10 cc of air
CONCLUSIONS
1. Multivessel coronary artery disease involving a subtotal the occluded mid LAD with failed attempt due to inability to wire despite use of multiple wires and microcatheters.
2. 70% mid RCA with diffuse up to 70% proximal RPDA stenosis.
3. Eccentric 50 to 60% mid left circumflex stenosis just proximal to OM 2.
4. Elevated LVEDP at 31 mmHg.
RECOMMENDATIONS
1. Wean radial band per protocol.
2. Refer to CT surgery for consideration for coronary artery bypass grafting to LAD, OM 2, distal RCA/RPDA. Hold Plavix in the interim.
3. Full echocardiogram to assess biventricular function and rule out any significant valvular abnormalities.
4. Aggressive management of cardiovascular risk factors.
5. Eventual referral for outpatient cardiac rehab.
Jasmina Villegas MD, FACC, [facility]
[2024-02-04 10:30] LABS: ACT-LR - POC 237 Seconds (116-155)
[2024-02-04 10:42] LABS: ACT-LR - POC 261 Seconds (116-155)
[2024-02-04 11:12] LABS: ACT-LR - POC 274 Seconds (116-155)
--- NOTE | 2024-02-04 12:17 | PTCARENOTE ---
pt returned from lab tester. educated on expected OOB time and restrictions. Right wrist CDI. VSS, call jean within reach. Will continue to monitor.
[2024-02-04] MEDS: TOPROL XL PO (13:33)
[2024-02-04] MEDS: NORVASC 5 MG PO (13:34)
--- NOTE | 2024-02-04 13:40 | CONSULT.CT ---
Consultation
-
Date/Time Consultation Requested: 02/04/2024
Date/Time Consultation Performed: 02/04/2024
Requesting Provider: Dr. Villegas/ Dr. Rizo
Performing Provider: Hui huang
Reason for Consultation: Evaluation for surgical revascularization
Patient History
Physicians
Family Physician: Dr. Adolfo Tesfaye
Outpatient [employer]: Dr. Wagner ([facility])
Inpatient [employer]: Dr. Rizo
History of Present Illness
Patient is a 58-year-old male who was admitted to [facility] ED complaining of substernal chest pain, chest pressure radiating to his left shoulder which started approximately 8 PM the night of admission. Patient reports exertional chest
pressure over the last 3 to 4 months which he said gets better with rest and at times comes on with minimal activity. He was previously evaluated at [facility] by Dr. Wagner and had a stress test performed approximately 3 months ago. No
results are available from stress testing and patient reports that blood flow to the back of his heart was 85%. He denies any previous cardiac catheterization.
In the emergency room he continued to have elevated blood pressure and ongoing chest pain. EKG changes showed nonspecific ST-T segment changes with upsloping ST segments. He ruled in for a NSTEMI with serial enzyme studies. He has been started on
nitro and heparin drips. Left-sided substernal chest pressure did resolve and he underwent cardiac catheterization today 02/04/[address] Villegas.
Cardiac catheterization showed left main is a large-caliber vessel with mild diffuse atherosclerotic plaque. The LAD was a medium to large caliber vessel which gives rise to 1 major branching diagonal branch. There was a subtotal occlusion in the
mid LAD just distal to the diagonal branch where it was moderately tortuous. Attempts to cross the lesion were unsuccessful.
Circumflex artery was a medium caliber vessel which gave rise to 2 major obtuse marginal branches. The mid circumflex vessel had a eccentric 50 to 60% stenosis just proximal OM 2. The right coronary artery was a medium to large caliber dominant
vessel which gave rise to the right posterior descending coronary artery and the right posterior lateral system. There was a 70% mid RCA stenosis. The RPDA is a small to medium caliber vessel with diffuse up to 70% proximal stenosis. LVEDP was 31
mmHg.
Cardiothoracic surgery was consulted for coronary artery bypass grafting. Plan to obtain all preoperative testing. All studies will be reviewed by attending cardiothoracic surgeon and plan to meet with patient and family later this week. Will
need Plavix washout.
Hold Plavix.
Obtain echocardiogram to assess biventricular function and rule out any significant valvular abnormalities.
Continue to optimize medical management of hypertension, hyperlipidemia
Past Medical History
Past Medical History: Angina, BPH, CAD, Covid-19 (Patient admits to COVID infection in the past and 1 COVID vaccine.), HTN and Hypercholesterolemia
Past medical history significant for hypertension, kidney stones, hyperlipidemia, obesity
Past Surgical History
Past surgical history significant for left rotator cuff repair
Left ear infection
Umbilical hernia approximately 15 years ago at [facility] by Dr. Seaman, surgery complicated by MRSA infection.
Dental History
n/a
Family History
Mother: at Age
Father: at Age (Father with history of CABG)
Family Medical History: CAD, Cancer and Hypertension
Social History
Alcohol: Occasional
Drug: None
Tobacco: Non-Smoker
Personal:
Living: Alone
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
Covid Vaccination History:
Patient admits to COVID infection in the past.
Patient admits to 1 COVID-vaccine.
Allergies
Allergy/AdvReac Type Severity Reaction Status Date / Time
lisinopril AdvReac Severe Anaphylaxis Verified 02/01/24 23:03
Home Medications
�Medication �Instructions �Recorded �Confirmed �Type
aspirin 81 mg tablet,delayed 81 mg PO QPM Blood Clot 01/24/24 02/02/24 History
release Prevention/Tx
omega-3 fatty acids-fish oil 684 1 cap PO DAILY Supplement 01/24/24 02/02/24 History
mg-1,200 mg capsule,delayed release
amlodipine 5 mg tablet 5 mg PO DAILY Blood Pressure 02/02/24 02/02/24 History
Review of Systems
-
History Source: Patient
General: Reports Weight Gain and Fatigue
HEENT: Reports No Symptoms
Respiratory: Reports CALHOUN
Cardiac: Reports Chest Pain, CAD, Nausea and Vomiting
Abdomen/GI: Reports No Symptoms
: Reports Nocturia
Musculoskeletal: Reports No Symptoms
Skin: Reports No Symptoms
Neurological: Reports No Symptoms
Vascular: Reports No Symptoms
Physical Exam
Vital Signs
Temp 98.9 F 02/04/24 06:55
Temp route: Oral 02/04/24 06:55
Pulse 72 02/04/24 13:34
Rhythm: Normal sinus rhythm 02/04/24 09:27
With- PVC's Monomorphic 02/03/24 07:40
Resp Rate 20 02/04/24 06:55
Blood pressure 124/83 02/04/24 13:34
Blood pressure extremity used: Left upper arm 02/04/24 06:55
Position: Lying 02/04/24 06:55
MAP (cuff-Rosalva Monitor) 106 02/04/24 12:30
SaO2 95 02/04/24 12:30
Nasal Cannula flow liters per minute 2 02/03/24 11:05
Oxygen Mode of Delivery Room air 02/04/24 06:55
Can the patient verbally communicate their pain? Yes 02/04/24 04:22
Pain scale ratin 02/04/24 04:22
Actual Weight 245 lb 9.519 oz 02/03/24 03:42
Body Mass Index (BMI) 34.3 02/03/24 03:42
Labs
02/04/24 04:44
02/04/24 04:44
APTT Cancelled 02/04/24 12:20
Hemoglobin A1c 5.9 % (4.0-5.6) H 02/02/24 12:31
Troponin I 13.000 ng/ml H* 02/04/24 04:44
Fxj-X-Fnfodejzdnz Pept < 20.0 pg/ml 02/01/24 21:01
Urinalysis
Urine Color Yellow 02/02/24 10:02
Urine Clarity Clear (Clear) 02/02/24 10:02
Urine pH 6.0 (5.0-9.0) 02/02/24 10:02
Ur Specific [place] 1.015 (<1.030) 02/02/24 10:02
Urine Ketones Negative (Negative) 02/02/24 10:02
Ur Occult Blood Reflex 1+ (Negative) A 02/02/24 10:02
Urine Bilirubin Negative (Negative) 02/02/24 10:02
Leukocyte Esterase Rfl Trace (Negative) A 02/02/24 10:02
Urine RBC 21-25 /HPF (0-2) A 02/02/24 10:02
Urine WBC (Reflex) 3-5 /HPF (0-5) 02/02/24 10:02
Ur Squamous Epith Cells 0-2 /LPF (Few) 02/02/24 10:02
Urine Mucus Few 02/02/24 10:02
Urine Glucose Trace (Negative) A 02/02/24 10:02
Urine Albumin (Reflex) Trace (Neg - Trace) 02/02/24 10:02
Exam
General: Well Developed, Well Nourished, No Apparent Distress, Comfortable and Other (Obese)
HEENT: Normocephalic, Anicteric and Atraumatic
Neck: Trachea Midline
Respiratory: Clear and Crackles
Cardiac: Regular Rhythm
GI: Soft, Non Tender, Non Distended, Normal Bowel Sounds and Other (obese)
Rectal: Deferred by Provider
Skin: Warm and Dry
Neuro: Awake, Alert, Oriented and AO x 3
Extremities: Pulses (Distal pulses intact bilaterally, dorsalis pedis pulses +2 bilaterally, posterior tibial pulses +1 bilaterally, feet cool dry no visible wounds or nonhealing ulcers)
Lymph: No Lymphadenopathy
Psych: Calm
Assessment / Plan
-
Assessment:
ACS/NSTEMI-continue heparin and nitroglycerin drips.
Hypertension
Family history of CAD
Hyperlipidemia
Obesity
Kidney stones status post urethral stent 01/24/2024
Plan:
Continue to optimize medical management for hyperlipidemia and hypertension
Preoperative studies ordered
Hold Plavix
All studies to be reviewed by attending cardiothoracic surgeon, plan to meet with patient and family later this week to discuss surgical plan and timing.
--- NOTE | 2024-02-04 16:17 | CM ---
Reviewed chart. Met with Mr. Jackson to review discharge plans. He states prior to admission he resides with his daughter and sone in law in a two story home with two steps to enter. He states he has a first floor set-up with bedroom/bathroom on the
first floor. He states prior to admission he was independent with ambulation and adls. He states he does not have any DME in the home. He states he has a prescription plan and uses [facility]. Medical work-up in progress. The discharge plan
is to return home with his daughter and son-in -law when medically stable.
--- NOTE | 2024-02-04 16:24 | W.PN.HOSP.TC ---
Today's Communication/Plan
-
continue current plan of care and follow Cards/CT surgery recs and pre-operative testing
Assessment / Plan
Assessment / Plan
Assessment:
NSTEMI
- trop peaked 13.9
- s/p Heparin drip
- continue ASA/Statin/BB
- Plavix on hold
- s/p Cath 02/03: Multivessel coronary artery disease involving a subtotal the occluded mid LAD with failed attempt due to inability to wire despite use of multiple wires and microcatheters.
- CT surgery consulted for operating evaluation/timing for potential bypass
Hypertensive Emergency
- continues on Nitro drip; wean as able
- continue oral BP meds
Nephrolithiasis
- s/p cysto with L ureteral stent placement on 01/24/24.
- Monitor for development of hematuria while on IV heparin/with stent in place.
- Discussed plan with Dr. Curiel who stated that stent can be removed in office.
DVT ppx: SCDs
Code: Full
Anticipated Discharge: > 48 hours
Subjective/Interval History
-
Date of Service: February 04, 2024
s/p [facility] with triple vessel disease and CT surgery consulted
no chest pain or SOB currently
Objective Data
-
Labs:
Laboratory Results
02/04/24 02/04/24
04:44 12:20
WBC 13.6 H
Hgb 13.4
Hct 38.8 L
Plt Count 190
APTT 68.4 H Cancelled
Sodium 136
Potassium 4.4
Chloride 103
Carbon Dioxide 24
BUN 13
Creatinine 0.8
Glucose 122 H
Calcium 9.6
Vital Signs:
Vital Signs
Temp Pulse Resp BP Pulse Ox
98.7 F 74 18 130/80 97
02/04/24 15:06 02/04/24 15:00 02/04/24 15:06 02/04/24 15:00 02/04/24 15:06
I&O
02/03/24 02/04/24 02/05/24
06:59 06:59 06:59
Intake Total 360 / 360 1800 / 1800
Output Total 3025 / 3025 2300 / 2300 600 / 600
Balance -2665 / -2665 -500 / -500 -600 / -600
Physical Exam
-
General: No Apparent Distress
HEENT: Normocephalic and Atraumatic
Respiratory: Negative Wheezes
Cardiac: Regular Rhythm and S1/S2
GI: Soft and Nontender
Genito-urinary: No Costovertebral Tender
Neuro: AO x 3
Hematologic / Lymphatic: No Lymphadenopathy
Psych: Calm
Data Reviewed
-
Total Time Spent with Patient (in minutes): 45
Medical Tests (Nuc Med, Echo etc): Report Reviewed by me
Labs: Labs Reviewed by me
[2024-02-04] MEDS: COZAAR 25 MG PO (17:23)
[2024-02-04] MEDS: LIPITOR 40 MG PO ×2 (17:24→19:27)
[2024-02-04] MEDS: HEPARIN 25000 UNITS/250 ML IV (18:33)
[2024-02-04 19:04] LABS: Hepatitis C Antibody Negative (Negative)
[2024-02-04] MEDS: TOPROL XL 25 MG PO (19:28)
[2024-02-04] MEDS: NITROGLYCERIN PREMIX 250 IV (23:13)
[2024-02-04] MEDS: BENADRYL 25 MG PO (23:14)
--- NOTE | 2024-02-05 00:32 | PTCARENOTE ---
Rec'd pt at change of shift. Pt AAO*3, VSS, and in nsr on TELE monitor. Pt with right radial site CDI, and aware of RUE restriction. Pt denies any pain or discomfort but reports headache and Tylenol given as ordered (see mar for full assessment).
Pt updated on plan of care and awaiting transfer to [facility], pending insurance approval. Updated given to joshua via telephone from [facility] transfer center. Pt with heparin and nitro infusing as ordered. Plan of care ongoing. Pt resting with call jean
in reach.
[2024-02-05 01:07] LABS: Hematocrit 38.7 % (39.0-52.0); Hemoglobin 13.6 g/dL (13.0-18.0); Mean Corp Hgb Conc. 35.1 g/dL (33.0-37.0); Mean Corpuscular Hgb 33.1 pg (27.0-31.0); Mean Corpuscular Volume 94.2 fL (80.0-94.0); Mean Platelet Volume 9.9 fL (7.4-10.4); Platelet Count 183 10^3/uL (130-400); Red Blood Cell Count 4.11 10^6/uL (4.70-6.10); Red Cell Dist. Width 12.1 % (11.5-14.5); White Blood Cell Count 12.5 10^3/uL (4.8-10.8)
[2024-02-05 01:12] LABS: INR 1.16; PT 15.3 Sec (11.4-14.6)
[2024-02-05 01:13] LABS: APTT 75.2 Sec (23.4-35.0)
[2024-02-05 01:52] LABS: Blood Urea Nitrogen 19 mg/dl (9-20); Calcium 9.6 mg/dl (8.4-10.2); Carbon Dioxide 26 mmol/L (22-30); Chloride 101 mmol/L (98-107); Estimated Creatinine Clearance 112 ml/min; Glucose 102 mg/dl (70-99); Sodium 135 mmol/L (135-145); eGFR > 60.00
[2024-02-05 04:12] VITALS: BP 94/59; BMI 34.3
[2024-02-05] MEDS: TYLENOL 650 MG PO ×3 (04:14→12:43)
[2024-02-05 07:53] VITALS: BP 106/74
[2024-02-05] MEDS: LOW STRENGTH ASPIRIN 81 MG PO (08:33)
[2024-02-05] MEDS: NORVASC 5 MG PO (08:34)
[2024-02-05] MEDS: TOPROL XL 25 MG PO (08:34)
[2024-02-05] MEDS: HEPARIN 25000 UNITS/250 ML IV (08:36)
--- NOTE | 2024-02-05 10:12 | PTCARENOTE ---
Received patient this morning with IV heparin infusing at 1900 units/hr and NTG infusing at 25mcg/hr. Patient denies any chest pain or sob, medicated for a headache with tylenol. Patient was afraid to eat breakfast in the event that [facility] would do
surgery later today. [facility] is accepting the patient as a transfer but spoke with Dr. Hankins who spoke with Dr. Villegas, no surgical plans today. Patient was updated, waiting on transfer info from [facility].
--- NOTE | 2024-02-05 10:55 | CM ---
Phone call placed to [facility]. Patient has a bed, [facility] Room 918, Report [phone]
[2024-02-05 11:04] VITALS: BP 108/62
[2024-02-05 11:13] LABS: APTT 91.3 Sec (23.4-35.0)
--- NOTE | 2024-02-05 12:57 | W.PN.HOSP.TC ---
Today's Communication/Plan
-
transfer to [facility]
Assessment / Plan
Assessment / Plan
Assessment:
NSTEMI
- trop peaked 13.9
- s/p Heparin drip
- continue ASA/Statin/BB
- Plavix on hold
- s/p Cath 02/03: Multivessel coronary artery disease involving a subtotal the occluded mid LAD with failed attempt due to inability to wire despite use of multiple wires and microcatheters.
- patient transferring to [facility] under Dr. Fermin service for CABG
Hypertensive Emergency
- continue oral BP meds
Nephrolithiasis
- s/p cysto with L ureteral stent placement on 01/24/24.
- Monitor for development of hematuria while on IV heparin/with stent in place.
- Discussed plan with Dr. Curiel who stated that stent can be removed in office.
DVT ppx: SCDs
Code: Full
Anticipated Discharge: Today
Subjective/Interval History
-
Date of Service: February 05, 2024
comfortable, no complaints
awaiting transfer
Objective Data
-
Labs:
Laboratory Results
02/05/24 02/05/24
00:52 10:38
WBC 12.5 H
Hgb 13.6
Hct 38.7 L
Plt Count 183
PT 15.3 H
INR 1.16
APTT 75.2 H 91.3 H
Sodium 135
Potassium 4.0
Chloride 101
Carbon Dioxide 26
BUN 19
Creatinine 0.9
Glucose 102 H
Calcium 9.6
Vital Signs:
Vital Signs
Temp Pulse Resp BP Pulse Ox
97.5 F 78 18 108/62 95
02/05/24 11:09 02/05/24 12:00 02/05/24 11:09 02/05/24 11:04 02/05/24 11:09
I&O
02/04/24 02/05/24 02/06/24
06:59 06:59 06:59
Intake Total 1800 / 1800 720 / 720
Output Total 2300 / 2300 2200 / 2200 200 / 200
Balance -500 / -500 -1480 / -1480 -200 / -200
Physical Exam
-
General: No Apparent Distress
HEENT: Normocephalic and Atraumatic
Respiratory: Negative Wheezes
Cardiac: Regular Rhythm and S1/S2
GI: Soft
Genito-urinary: No Costovertebral Tender
Neuro: AO x 3
Hematologic / Lymphatic: No Lymphadenopathy
Psych: Calm
--- NOTE | 2024-02-05 14:25 | PTCARENOTE ---
Report called to [facility], patient transferred to facility via [facility] with NTG at 25mcg/hr and heparin at 1900 units/hr. Daughter took the patient's belongings and will meet her father at the hospital.
== END 2024-02-05 14:00 | disposition short-term general hospital (02) | DRG 281 ==
LOC: IVU 06:02
PROVIDERS: Internal Medicine Cardiovascular Disease; Internal Medicine Interventional Cardiology; Nurse Practitioner; Physician Assistant; Physician Assistant Surgical; Student in an Organized Health Care Education/Training Program; ADMITTING PHYSICIAN Hospitalist; ATTENDING PHYSICIAN Internal Medicine; CONSULT PHYSICIAN Thoracic Surgery (Cardiothoracic Vascular Surgery); EMERGENCY PHYSICIAN Emergency Medicine; FAMILY PHYSICIAN Internal Medicine; OTHER PHYSICIAN Internal Medicine Cardiovascular Disease
PROC: B2111ZZ Fluoroscopy of Multiple Coronary Arteries using Low Osmolar Contrast (ICD-10-PCS; 2024-02-04)
PROC: 4A023N7 Measurement of Cardiac Sampling and Pressure, Left Heart, Percutaneous Approach (ICD-10-PCS; 2024-02-04)
DX: I21.4 Non-ST elevation (NSTEMI) myocardial infarction (principal); I16.1 Hypertensive emergency; Z79.82 Long term (current) use of aspirin; Z87.442 Personal history of urinary calculi
CPT/HCPCS: 71275; 80048; 80053; 80061; 81003; 81015; 83036; 83735; 83880; 84484; 85025; 85027; 85379; 85610; 85730; 86803; 87070; 93005; 93306; 93458; 96365; 96366; 96367; 96375; 96376; 99285; C1769; C1894; Q9950; Q9967

== ENCOUNTER 2024-04-28 16:48 | Outpatient (RCR) | payer OTHER, SELFPAY | END 2024-04-28 23:59 | disposition home or self-care (01) | LOC: CRHB 16:48 | PROVIDERS: ATTENDING PHYSICIAN Thoracic Surgery (Cardiothoracic Vascular Surgery) | DX: Z95.1 Presence of aortocoronary bypass graft (principal) | CPT/HCPCS: 93797; 93798 ==

== ENCOUNTER 2025-02-02 22:13 | Observation (INO) | payer OTHER, SELFPAY ==
[2025-02-02 16:11] VITALS: BP 155/97
[2025-02-02 18:40] LABS: Hematocrit 45.0 % (39.0-52.0); Hemoglobin 15.7 g/dL (13.0-18.0); Mean Corp Hgb Conc. 34.9 g/dL (33.0-37.0); Mean Corpuscular Volume 93.4 fL (80.0-94.0); Nucleated Red Blood Cells % 0 % (-); Platelet Count 200 10^3/uL (130-400); Red Cell Dist. Width 12.0 % (11.5-14.5)
[2025-02-02 18:51] LABS: ALT (SGPT) 40 U/L (0-50); AST (SGOT) 34 U/L (17-59); Albumin 4.8 g/dl (3.5-5.0); Alkaline Phosphatase 50 U/L (38-126); Blood Urea Nitrogen 14 mg/dl (9-20); Calcium 9.9 mg/dl (8.4-10.2); Carbon Dioxide 27 mmol/L (22-30); Chloride 102 mmol/L (98-107); Glucose 139 mg/dl (70-99); Potassium 4.3 mmol/L (3.5-5.1); Sodium 135 mmol/L (135-145); Total Protein 7.8 g/dl (6.3-8.2); eGFR > 60.00
[2025-02-02 18:57] LABS: Troponin I < 0.012 ng/ml
--- NOTE | 2025-02-02 19:46 | ED.GENMED ---
History of Present Illness
General
Chief Complaint: Chest Pain
Source: patient
Exam Limitations: none
Time Seen by Provider: 02/02/25 19:46
History of Present Illness
History of Present Illness:
59-year-old male with 2 weeks of intermittent episodes of chest tightness. Comes and goes. The last minutes to 30 minutes. An episode prior to ER arrival. Encouraged to get checked by his family. 1 brief episode while here. Some occasional
nausea with this. Admits to some increased alcohol intake over the last few weeks with his daughter getting . Denies pleuritic pain or exertional symptoms. Patient headache CABG done about a year ago.
Past History
Past History
ED Past Medical History: CAD, HTN, Hypercholesterolemia and Other (Factor V Leiden, pulmonary embolus age 32, DVT)
ED Past Surgical History: Cardiac and Orthopedic
Social History
Tobacco: Non-smoker
Alcohol: Occasional
Drug: None
Personal:
Living: alone
Review of Systems
Review of Systems
All Other Systems: Not applicable
Respiratory: Reports no symptoms
ABD/GI: Denies abdominal pain
Phy Exam
Physical Exam
Physical Exam:
GENERAL: Alert and oriented in no apparent distress
EYE: Orbits normal.
NECK: Supple, no significant adenopathy.
ENT: Pharynx without erythema
CARDIAC: Regular rate and rhythm without any obvious murmurs.
LUNGS: Clear breath sounds,normal
ABDOMEN: Soft, without focal tenderness or distention
NEUROLOGICAL: Alert and oriented , grossly non-focal
SKIN: Warm and dry, no rash or lesion, no discoloration, skin intact.
MUSCULOSKELETAL: No edema,no deformity.Good color
PSYCH: Normal and appropriate interaction.
Scores
Heart Score for Chest Pain Patients
STEMI patient?: No
History: Moderately Suspicious
ECG: Normal
Age: >45 - <65 years
Risk Factors: >/= 3 Risk Factors or History of CAD
Troponin: </= Normal Limit
Heart Score for Chest Pain Patients: 4
Heart Score Risk: 20.3% MACE over next 6 weeks
Course
Orders/Labs/Results
Orders:
Orders
02/02/25 Breakfast
NPO
Allow oral meds: Yes
Allow clear liquids: Sips of Clears
02/02/25 16:10
Electrocardiogram (*1) Urgent
Reason for Study: Chest Pain
EKG- Treatment ONCE
02/02/25 18:21
Complete Blood Count/With Diff Urgent
Comprehensive Metabolic Panel Urgent
Lipase Urgent
Comment: ADD ON
Troponin I Urgent
02/02/25 19:46
Add On- LAB Urgent
Tests Added?: lipase
02/02/25 19:55
IV Insert/Care/Rem.- Treatment PRN
CXR2 [CR Chest - 2 Views ] Urgent
Comment:
Reason For Exam: cp
Pulse Ox/cont/shift [RESP] Stat
Quantity: 1
02/02/25 19:56
Cardiac Monitoring- Treatment ONCE
02/02/25 20:08
COVID-19 Antigen Urgent
Source: Nasal Swab
Influenza A+B Rapid Molecular Urgent
NANDINI Source: Nasal Swab
Specimen Description:
02/02/25 20:57
Electrocardiogram (*1) Stat
Reason for Study: Other
Other Reason for Exam: chest pain
EKG- Treatment ONCE
02/02/25 21:56
Admit/Transfer Patient As Directed
Co-Sign Provider:
Level of Care: Observation services
Assign to:: Telemetry
Physician / Group: Cristian
Diagnosis: Chest pain
Reason for Telemetry: Chest Pain syndromes
Date to Stop Telemetry: 02/04/25
Time to Stop Telemetry: 11:00
PRN Pain Medication Management As Directed
May give lesser potent ordered pain med per pt: Yes
preference::
Protocol:: Medication orders for pain may be administered in a
manner that supports deferring to patient preference
when the pt is:
- Requesting an ordered lesser potent pain medication.
Least to most potent pain medications are defined
as: acetaminophen < NSAID < tramadol < opioids
(morphine, oxycodone, hydromorphone).
- Requesting a lesser dose of the same medication IF
ORDERED.
- Requesting a less intrusive route of administration
if both routes are prescribed by the provider (PO <
IV).
02/02/25 21:57
Code Status As Directed
Resuscitation Status: Full Code
02/02/25 23:05
Troponin I Q6H
Acetaminophen [Tylenol] 650 mg PO Q4HPRN PRN
Morphine Sulfate 2 mg IV Q4HPRN PRN
Nitroglycerin Sublingual [Nitrostat (Sublingual)] 0.4 mg SL [id number] PRN
Rosuvastatin Calcium [Crestor] 10 mg PO HS
02/02/25 23:05
CARDIOLOGY CONSULT Routine
Consulting Provider: Yamileth Nesbitt
Was physician already notified: No
Reason for consult: Chest Pain
Consult Notification Routine
Specialty to Notify: Cardiology
Activity As Directed
Activity Level: Bedrest
Bladder Scan As Directed
Follow Bladder Retention/Intermittent Cath Algorithm?: Yes
PRN if no void in __ hours: 6
Frequency: Per Retention Algorithm
If Bladder Scan Result >: 400
then:: Straight cath
EKG with chest pain [ECG as needed] As Directed
ECG as needed for:: Chest Pain
I/O [Intake/ Output] As Directed
Frequency: Per unit guidelines
Straight Cath As Directed
Frequency: Per Retention Algorithm
Additional Instructions: straight cath as needed per acute urinary retention algorithm for 24 hrs
Additional Instructions: for bladder scan greater than 400 mL
Vital Signs As Directed
Frequency: Per unit guidelines
Weight As Directed
Frequency: Daily
Oxygen Therapy [O2 Therapy] [RESP] Routine
Titrate/Wean O2 to maintain O2 sat greater than (%): 94
DX Deep Vein Thrombosis Video Routine
02/02/25 23:34
Glycohemoglobin (HgbA1c) Routine
02/03/25 05:05
Troponin I Q6H
02/03/25 06:00
EKG [Electrocardiogram (*1)] IN AM
Reason for Study: Chest Pain
Basic Metabolic Panel IN AM
Cardiovascular Evaluation IN AM
Complete Blood Count/No Diff IN AM
02/03/25 08:00
Amlodipine [Norvasc] 5 mg PO DAILY
Aspirin Low Dose EC [Aspir Low (Enteric Coated)] 162 mg PO DAILY
Pantoprazole [Protonix] 40 mg PO DAILY
omega-3 fatty acids-fish oil 1 cap PO DAILY
02/03/25 18:00
Enoxaparin Sodium [Lovenox] 40 mg SC QPM
02/04/25 11:00
DC Protocol for Telemetry ONCE
Abnormal Lab Results
02/02/25
18:21
MCH 32.6 H pg
(27.0-31.0)
Absolute Monos (auto) 0.7 H 10^3/uL
(0.1-0.6)
Monocytes % 11.5 H %
(1.7-9.3)
Glucose 139 H mg/dl
(70-99)
02/02/25 18:21
02/02/25 18:21
Vital Signs
Initial and Last Documented VS:
Initial Vital Signs
Temp Pulse Resp BP Pulse Ox
98.1 F 85 20 155/97 97
02/02/25 16:11 02/02/25 16:11 02/02/25 16:11 02/02/25 16:11 02/02/25 16:11
Last Documented Vital Signs
Temp Pulse Resp BP Pulse Ox
98.1 F 78 16 155/97 97
02/02/25 16:11 02/02/25 22:30 02/02/25 22:30 02/02/25 16:11 02/02/25 21:00
MDM/Problems Addressed
Differential Diagnosis Includes:
Patient describing nonexertional intermittent chest tightness over the last few weeks. He has danced at his daughter's wedding without symptoms. Relatively low suspicion for cardiac issues. Highly doubt PE or dissection. However with
intermittent nature known CABG patient warrants monitoring overnight and trending troponin. Also has had a slight cough for the last few weeks. Will check COVID flu and chest x-ray. Doubt primary infectious issue
*Radiology
Radiology exam reviewed: preliminary read by ED provider (Negative) and radiology read reviewed (Negative)
*Pulse Oximetry
SaO2: 97
Oxygen Mode of Delivery: Room air
Patient hypoxic: no
*EKG
Interpreted by ED Provider?: Yes
Interpretation: abnormal
Comparison EKG: changes noted
Heart Rate: 80
Rate: normal
Rhythm: sinus
[place]: normal axis
Interval: normal interval
QRS Pattern: poor R-wave progression
Ischemia: non-specific ST changes
*Critical Care Note
Total Time (30-74mins, 75-104mins- exclusive of procedures): Not Applicable
Data Reviewed
Review of Other/Old Records Reveals: Labs, Records and Testing
ED Attending Note
-
Portions of this chart may have been created with voice recognition software.� Occasional wrong word or��sound alike� substitutions may have occurred due to the inherent limitations of voice recognition software.
Discharge Plan
Departure
Patient Disposition: Admit
Date of Disposition: 02/02/25
Time of Disposition: 21:58
Presentation/result/management discussed w/ accepting MD/DO: Hospitalist
Discharge Problem:
Recurrent chest pain, History of CABG
Interventions
Interventions:
*General Assessment Last Done: 02/02/25 16:11
*Neglect/Abuse Screening Last Done: 02/02/25 16:11
*ED COVID-19 Vaccine History Last Done: 02/02/25 20:00
*ED Influenza Vaccine History Last Done: 02/02/25 20:00
[facility] Fall Risk Assessment Tool Last Done: 02/02/25 20:00
*Risk Screen - Suicide (C-SSRS) Last Done: 02/02/25 16:11
ED- Cardiac Assessment Last Done: 02/02/25 20:00
[2025-02-02 20:00] VITALS: BMI 36.0
[2025-02-02 20:16] LABS: Lipase 66 U/L (23-300)
[2025-02-02 20:38] LABS: COVID-19 Antigen Negative (Negative)
--- NOTE | 2025-02-02 21:59 | HPS.HSE ---
Family Physician
-
Family Physician: Adolfo Tesfaye
Chief Complaint
-
Chest Pain
History of Present Illness
Patient is a 59y M with PMH significant for ASCVD who presents to ED complaining of chest pain. Patient states that he has had some discomfort in the upper chest / collarbone area for the past 3 weeks or so. He has had a very busy recent few
weeks. His daughter had a wedding this past weekend. He states that he has been working out / lifting weights recently after not doing so for quite some time. He has had more alcohol than usual over the past 7-10 days. Patient notes that he has
had no dyspnea with exercise, dancing, etc.
He states that the discomfort he has currently is not similar to his prior chest squeezing / tightness that he had with his prior DC.
Patient also states that he had recent sore throat, cough, cold symptoms. This has improved over the past 2 weeks and he feels better at present.
Medical History
Past Medical History
Past Medical History: Reports Other
Additional Past Medical History:
ASCVD
Hypertension
Nephrolithiasis
Obesity
Past Surgical History: Reports Other
Additional Past Surgical History:
CABG x 4 (2023 @ [facility])
Left Shoulder Surgery
Cysto / L Ureteral Stent Placement (01/24/24)
Social History
Tobacco: Non-smoker
Alcohol: Occasional
Drug: None
Family History
Family History: Other (Father: CAD)
Allergies / Home Medications
Allergies reflects when Allergies were last updated in [employer].
Home Medications with original date entered in [employer]
Allergy/Medication List:
Allergies
Allergy/AdvReac Type Severity Reaction Status Date / Time
lisinopril Allergy Anaphylaxis Verified 02/02/25 16:17
Home Medications
aspirin 81 mg tablet,delayed release 162 mg PO DAILY Blood Clot Prevention/Tx 01/24/24
omega-3 fatty acids-fish oil 684 mg-1,200 mg capsule,delayed release 1 cap PO DAILY Supplement 01/24/24
amlodipine 5 mg tablet 5 mg PO DAILY Blood Pressure 02/02/24
rosuvastatin 10 mg tablet 10 mg PO HS 02/02/25
Review of Systems
-
History Source: Patient
A 12 point ROS was completed and negative except as noted: Yes
Constitutional: Denies Fever or Chills
Respiratory: Denies Cough or Trouble Breathing
Cardiac: Reports Chest Pain; Denies Diaphoresis, Palpitations or Syncope
Abdomen/GI: Denies Abdominal Pain, Nausea, Vomiting or Diarrhea
: Denies Dysuria or Frequency
Musculoskeletal: Denies Joint Pain or Edema
Neurological: Denies Dizzy or Headache
Psych: Denies Depression or Anxiety
Physical Exam
Vital Signs
Vital Signs
Temp Pulse Resp BP Pulse Ox
98.1 F 75 16 155/97 97
02/02/25 16:11 02/02/25 21:45 02/02/25 21:45 02/02/25 16:11 02/02/25 21:00
Physical Exam
General: Other (59y M in no acute distress.)
HEENT: Moist mucous membranes, PERRLA and Other (Injected sclerae.)
Respiratory: Clear; No Wheezes, Rales or Rhonchi
Cardiac: S1/S2 and Regular Rhythm; No Murmur
GI: Soft, Non Tender, Non Distended and Normal Bowel Sounds
Musculoskeletal: No Clubbing, No Cyanosis and No Edema
Neuro: AO x 3
Laboratory Results
-
02/02/25 18:21
02/02/25 18:21
Laboratory Results
Total Bilirubin 0.8 mg/dl (0.2-1.3) 02/02/25 18:21
AST 34 U/L (17-59) 02/02/25 18:21
ALT 40 U/L (0-50) 02/02/25 18:21
Alkaline Phosphatase 50 U/L (38-126) 02/02/25 18:21
Troponin I Cancelled 02/02/25 20:59
Lipase 66 U/L (23-300) 02/02/25 18:21
Impression/Plan
-
A/P: Patient is a 59y M with PMH significant for ASCVD and prior CABG who presents to ED complaining of chest pain x 3 weeks.
ASCVD
Atypical Chest Pain
- Observe overnight for further evaluation and treatment.
- Initial troponin is undetectable.
- EKG with non-specific ST-T changes in lateral leads compared to prior.
- History seems more c/w muscular discomfort (? due to recent exercise / weights).
- Follow serial troponin.
- Monitor for any new / worsening symptoms.
- Continue usual CV med regimen including ASA, statin, etc.
- Cardiology evaluation for additional recommendations.
Benign Hypertension
- Stable. Continue amlodipine.
Obesity due to excess calories
- Affects all aspects of care.
- Encourage health diet, increased activity with goal of weight loss.
DVT prophylaxis: Lovenox
Code Status: Full
[2025-02-02 23:09] VITALS: BP 139/84
[2025-02-02] MEDS: CRESTOR 10 MG PO (23:41)
[2025-02-03 00:17] LABS: Troponin I < 0.012 ng/ml
[2025-02-03 05:10] VITALS: BP 146/90
[2025-02-03 05:33] LABS: Hematocrit 43.1 % (39.0-52.0); Hemoglobin 15.4 g/dL (13.0-18.0); Mean Corp Hgb Conc. 35.7 g/dL (33.0-37.0); Mean Corpuscular Volume 91.3 fL (80.0-94.0); Platelet Count 184 10^3/uL (130-400); Red Cell Dist. Width 12.1 % (11.5-14.5)
[2025-02-03 05:58] LABS: Blood Urea Nitrogen 12 mg/dl (9-20); Calcium 9.8 mg/dl (8.4-10.2); Carbon Dioxide 26 mmol/L (22-30); Chloride 106 mmol/L (98-107); Estimated Creatinine Clearance > 125 ml/min; Glucose 115 mg/dl (70-99); HDL Cholesterol 54 mg/dl; LDL Cholesterol, Calculated 96 mg/dl; Potassium 4.3 mmol/L (3.5-5.1); Sodium 137 mmol/L (135-145); Very Low Density Lipoprotein 34 mg/dl (0-30); eGFR > 60.00
[2025-02-03 05:59] LABS: Troponin I < 0.012 ng/ml
[2025-02-03 08:10] VITALS: BMI 34.4
[2025-02-03 08:21] VITALS: BP 130/85
--- NOTE | 2025-02-03 08:24 | PTCARENOTE ---
Received patient from ED via stretcher. Pt AAOX3. 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 Pt denies chest pain/SOB. Call jean within reach. Plan of care ongoing.
[2025-02-03] MEDS: PROTONIX 40 MG PO (08:28)
[2025-02-03] MEDS: NORVASC 5 MG PO (08:29)
[2025-02-03] MEDS: ASPIR LOW (ENTERIC COATED) 162 MG PO (08:30)
[2025-02-03 08:45] LABS: Glycohemoglobin (HgbA1c) 5.8 % (4.0-5.9)
--- NOTE | 2025-02-03 09:11 | CON.CAR ---
Addendum entered and electronically signed by Yamileth Nesbitt DO 02/03/25 13:27:
I saw and examined the patient.
The Creative Coordinator's note was reviewed and I agree with the note.
Comment: Patient was seen and examined in patient was seen and examined with cardiac PA. Mr. Guerrero is a 59-year-old gentleman with known coronary artery disease status post CABG at [facility] with Dr. Fermin on 02/11/2024 after he
was found to have multivessel coronary artery disease status post a non-STEMI in January 2024. He also has a history of postoperative atrial fibrillation briefly on amiodarone post CABG but not anticoagulated. Additionally has hypertension,
hyperlipidemia and factor V Leiden without known thromboembolic disease. He has completed cardiac rehab and has been feeling relatively well adhering to a low-sodium cardiac healthy diet through meal delivery service. However, over the last few
weeks he has noted excessive drinking and poor dietary choices as he has multiple family members in from [place] and other parts of the [place] for his daughter's wedding. About a week ago he had an upper respiratory illness with sore throat and cough
without fevers but feels he has recovered. He has been noting abdominal bloating and increased belching. He denies change in bowel movements, melena or bright red blood per rectum. He has been compliant with his medications. He presented to [facility] with complaints of upper chest/collarbone discomfort which is different than his prior angina complaints. He denies the symptoms or with exertion or worsen with exertion. He denies associated shortness of breath, nausea or
diaphoresis. He is currently pain-free.
Pertinent lab work: Hemoglobin 15.4, WBC 5.9, platelets 184,000. Sodium 137, potassium 4.3, BUN/creatinine 12/0.8. Troponin less than 0.012 x 3. Total cholesterol 184, triglycerides 173, LDL 96. HDL 54. COVID-negative; influenza negative.
Chest x-ray with no evidence of active cardiopulmonary disease. CTA of the chest, PE protocol shows no pulmonary embolism. No thoracic aortic aneurysm or dissection. No pulmonary pathology. Twelve-lead EKG normal sinus rhythm with anteroseptal
infarct. No acute ischemic changes.
General: No acute distress, AAOX3
Neck: Negative JVD
Heart: Regular, Negative S3 positive S1/S2, Negative S4, No murmur
Lungs: CTA b/l, negative wheezes/rales/rhonchi. Midline incision healed
Abd: Positive BS, NT/ND, neg rebound/rigidity/guarding
Ext: Negative cyanosis/clubbing/edema
Neuro: nonfocal
Plan:
Atypical upper chest discomfort, likely noncardiac
- Troponin undetectable x 3
- EKG normal sinus rhythm without acute ischemic changes with prior evidence of anteroseptal infarct, age indeterminant.
-CTA of the chest negative for PE or aortic pathology.
- May be of GI etiology as he admits to excessive alcohol use over the last couple of weeks leading up to his daughter's wedding in addition to dietary indiscretion.
-Will check a 2D echocardiogram
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
Recent URI, nontoxic with no current symptoms
-COVID and flu negative. No leukocytosis.
-Chest x-ray and CT of the chest without pulmonary pathology.
Known multivessel coronary artery disease with non-STEMI 01/2024 status post CABG at outside hospital February 11, 2024
- Continue daily aspirin, statin.
- LDL 96, uptitrate rosuvastatin to 20 mg daily.
-Telemetry personally reviewed: Normal sinus rhythm 80s
-Blood pressure is elevated. Will resume Toprol 12.5 mg daily.
- Goal normotension
Anticipate discharge home after echocardiogram if no actionable findings.
Original Note:
Consultation
Consultation Request
Date/Time Consultation Requested: 02/03/2025
Date/Time Consultation Performed: 02/03/2025, 0900
Requesting Provider: Dr. Foster
Performing Provider: TOMEKA Ordaz for Dr. Nesbitt
Reason for Consultation: Chest pain
Medical History
-
Chief Complaint: Chest pressure
History of Present Illness:
59-year-old male with past medical history CAD status post CABG x 3 on 02/11/2024 at [facility] with Dr. Fermin, postoperative atrial fibrillation, non-ST elevation CA 01/2024 (seen at [facility] and had cath revealing MV CAD), hypertension, hyperlipidemia
nephrolithiasis with stent placement 01/2024 presents to [facility] ED with 3-week history of intermittent discomfort in upper chest/collarbone. Describes discomfort as an intermittent pressure under bilateral collarbone and upper sternum, no radiation
or associated symptoms. Pressure occurs randomly, lingering minutes to hours, not exertional, pleuritic,or positional. He has had a busy 3 weeks with a daughter's wedding 2 days ago. He has had family in from [place] for the past 10 days and
admits to heavy drinking and eating in this period of time. He had been working out and lifting weights prior to the wedding which he had not done in some time. He typically walks 5 miles a day and has no chest pain or shortness of breath with
this level of activity. Also with sore throat, cough, cold like symptoms. No fevers, chills
He follows with Dr. Wagner at [facility] and was last seen in November 2024. He reports he had some type of diagnostic study that was normal.
ED workup:
Troponin < 0.012 x 3
EKG: Normal sinus rhythm septal Q waves nonspecific T wave abnormality
COVID-negative, flu negative
FLP: LDL 96, HDL 54, triglycerides 173, total cholesterol 84.
BUN/creatinine 12/0.8, NA 137, K4.3, hemoglobin 15.4, WBC 5.9, platelets 184.
Chest x-ray with no evidence of active cardiopulmonary disease
Past medical history:
CAD status post CABG x 3 (GIBSON to LAD, left radial to OM, MARQUIS to RCA) 02/11/2024 Dr. Fermin
Postop atrial fibrillation
Non-ST elevation CA 01/2024
Factor V Leiden
Hypertension
Hyperlipidemia
BPH
Nephrolithiasis with left ureteral stent placement 01/24/2024
Past Medical History
Past Medical History: HTN
Past Surgical History: Cardiac (CABG x 3) and Urological
Social History
Tobacco: Non-Smoker
Alcohol: Occasional
Drug: None
Personal:
Living: With Family
Employment: Employed
Family History
Family History: CAD
Allergies / Home Medications
Allergy/AdvReac Type Severity Reaction Status Date / Time
lisinopril Allergy Anaphylaxis Verified 02/02/25 16:17
�Medication �Instructions �Recorded �Confirmed �Type
aspirin 81 mg tablet,delayed 162 mg PO DAILY Blood Clot 01/24/24 02/02/25 History
release Prevention/Tx
omega-3 fatty acids-fish oil 684 1 cap PO DAILY Supplement 01/24/24 02/02/25 History
mg-1,200 mg capsule,delayed release
amlodipine 5 mg tablet 5 mg PO DAILY Blood Pressure 02/02/24 02/02/25 History
rosuvastatin 10 mg tablet 10 mg PO HS 02/02/25 02/02/25 History
Physical Exam
Vital Signs
Temp Pulse Resp BP Pulse Ox
97.9 F 71 15 130/85 97
02/03/25 08:21 02/03/25 08:29 02/03/25 08:21 02/03/25 08:29 02/03/25 08:21
Lab Results
02/03/25 05:18
02/03/25 05:19
Troponin I < 0.012 ng/ml 02/03/25 05:18
Impression / Plan
-
PCP: Adolfo Tesfaye
Prim electrical subcontractor: Elmer Wagner MD
Previous CV testing:
Echo 02/11/2024 postop: EF 55 to 60%, apical akinesis, mild MR, RV normal size and function.
Left heart cath 02/04/2024:
LEFT MAIN: The left main artery is a large-caliber vessel with mild diffuse atherosclerotic plaque.
LEFT ANTERIOR DESCENDING: The left anterior descending artery is a medium to large caliber vessel which gives rise to 1 major branching diagonal branch. There is a subtotal occlusion in the mid LAD just distal to the diagonal branch where it is
moderately tortuous. Attempt was made to wire this vessel however despite wire escalation and use of multiple microcatheters, we feel to cross the lesion and the case was aborted.
CIRCUMFLEX: The left circumflex artery is a medium caliber vessel which gives rise to 2 major obtuse marginal branches. Mid left circumflex has eccentric 50 to 60% stenosis just proximal to OM 2.
RIGHT CORONARY ARTERY: The right coronary is a medium to large caliber, dominant vessel which gives rise to the right posterior descending artery and the right posterolateral system. There is a 70% mid RCA tubular stenosis. The RPDA is a small to
medium caliber vessel with diffuse up to 70% proximal stenosis.
*Failed attempt to perform intervention on occluded mid LAD due to inability to wire despite use of multiple wires and microcatheters. Patient referred to CT surgery
Impression:
Atypical chest pressure
h/o CAD s/p CABG x 3 02/2024
post op afib
HTN
Hyperlipidemia
Obesity
ureteral stent 01/24/2024
Ureteral stones
Familial history of CAD
Plan:
59-year-old male w/ PMH CAD s/p CABG x 3, postoperative atrial fibrillation, non-ST elevation CA 01/2024, HTN, hyperlipidemia ,nephrolithiasis with stent placement 01/2024 presents to [facility] ED with 3-week history of intermittent pressure-like
discomfort in upper chest/collarbone, no radiation or associated symptoms. Pressure not exertional, pleuritic,or positional. Admits to busy past 3 weeks with daughter's wedding 2 days ago and guests in from [place] with heavy eating and drinking
as well as doing weight lifting that he had not done in some time. Also with sore throat, cough, cold like symptoms. No fevers, chills.
He follows with Dr. Wagner at [facility] and was last seen in November 2024. He reports he had some type of diagnostic study that was normal.
Chest pain
- Troponin undetectable x 3
- EKG NSR nonspecific ST-T abnl
-Consider outpatient ischemic eval
-Continue daily aspirin, statin. LDL 96, uptitrate rosuvastatin to 20 mg daily.
-COVID and flu negative
-Telemetry personally reviewed: Normal sinus rhythm 80s
-BP mildly elevated, consider up titration of amlodipine or addition of low-dose beta-corazon. In review of previous records was on Toprol 12.5 mg at discharge post CABG
-obtained records from [facility] which were reviewed and incorporated into notes, awaiting records from Dr Wagner.
Data Reviewed
-
EKG: Tracing Personally Visualized and interpreted
Labs: Labs Reviewed by me
Old Records: Requested and Reviewed
--- NOTE | 2025-02-03 11:05 | CM ---
Met with patient at beside
Observation letter explained and signed @ 1100
Pharmacy verified: [facility] [address] [facility]
Lives alone; multilevel home; master bedroom and bath on first floor
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
NO SNF or home health history
Transport: Drive self home
Plan: Discharge to home; no needs anticipated
[2025-02-03 11:53] VITALS: BP 150/81
--- NOTE | 2025-02-03 13:45 | CARDSERVDEF ---
Echocardiogram with Def[facility] completed after protocol screening completed. Allergies verified.
Patent IV site: _existing 22P RW____
IV site flushed with 0.9% NaCl pre and post administration.
Diluted bolus method utilized to enhance visualization of ventricular isidro.
Total volume given: __4.0__ mL
flushed site easily at completion of test.
Patient tolerated all procedures well without complications.
--- NOTE | 2025-02-03 15:16 | W.PN.HOSP.TC ---
Today's Communication/Plan
-
Discharge home if echo with no actionable finding
Assessment / Plan
Assessment / Plan
Chest pain
[place] to be noncardiac
Troponins negative
Cardiology consulted, echo pending. If no actionable findings, patient will be discharged
CAD s/p CABG
Repeated lipid panel, reviewed with patient
Per cardiology rec, increased statin, resumed Toprol-XL
Continue aspirin
HTN
BP controlled continue amlodipine
DVT PPx
Lovenox
Anticipated Discharge: Today
Subjective/Interval History
-
Date of Service: February 03, 2025
Patient denies any further chest pain
Objective Data
-
Labs:
Laboratory Results
02/03/25 02/03/25
05:18 05:19
WBC 5.9
Hgb 15.4
Hct 43.1
Plt Count 184
Sodium 137
Potassium 4.3
Chloride 106
Carbon Dioxide 26
BUN 12
Creatinine 0.8
Glucose 115 H
Calcium 9.8
Vital Signs:
Vital Signs
Temp Pulse Resp BP Pulse Ox
98.2 F 72 14 150/81 96
02/03/25 11:53 02/03/25 11:53 02/03/25 11:53 02/03/25 11:53 02/03/25 11:53
Review of Systems
-
History Source: Patient
All other systems: Reviewed and negative
Physical Exam
-
General: No Apparent Distress
HEENT: Moist Mucous Membranes, Anicteric and PERRLA
Respiratory: Clear to Auscultation; Negative Wheezes, Rales or Rhonchi
Cardiac: Regular Rhythm and S1/S2; Negative Murmur, Rub or Gallop
GI: Soft, Nontender, Nondistended and Normal Bowel Sounds
Musculoskeletal: No Edema
Skin: Warm and Dry; Negative Rash, Ulcers or Lesions
Neuro: Awake and AO x 3
Hematologic / Lymphatic: No Lymphadenopathy
Psych: Calm
Data Reviewed
-
Diagnostic Radiology: Report Reviewed by me and Discussed with Patient
Labs: Labs Reviewed by me and Discussed with Patient
[2025-02-03] MEDS: TOPROL XL 12.5 MG PO (15:19)
[2025-02-03 15:42] VITALS: BP 108/73
--- NOTE | 2025-02-04 19:07 | W.DCSUMMARY ---
Discharge Summary
Discharge Data
Date of Admission: 02/02/25
Date of Discharge: 02/03/25
Total time spent discharging patient (in min): 31
Discharge Plan
-
Patient Disposition: Home (Routine Discharge)
Discharge Diagnosis/Procedures: Chest pain
Diet: Regular
Activity: As tolerated
Driving Restrictions: As prior to admission
Referrals:
Yamileth Nesbitt DO [Active, Cardiology]
Adolfo Tesfaye MD [Family Provider, Internal Medicine]
Prescriptions:
New
metoprolol succinate 25 mg Tablet Extended Release 24 Hr
12.5 mg PO DAILY Qty: 30 0RF
rosuvastatin 20 mg Tablet
20 mg PO QPM Qty: 30 0RF
Continued
aspirin 81 mg Tablet,Delayed Release (Dr/Ec)
162 mg PO DAILY
omega-3 fatty acids-fish oil 684-1,200 mg Capsule,Delayed Release(Dr/Ec)
1 cap PO DAILY
amlodipine 5 mg Tablet
5 mg PO DAILY
Discontinued
rosuvastatin 10 mg tablet
10 mg PO HS
Discharge Orders:
Discharge Patient (As Directed); Ordered 02/03/25
Ordered By: Ligia Bailon
Discharge Date and Time
Discharge Date/Time: 02/03/25 16:01
Print Language: CHINESE
== END 2025-02-03 16:01 | disposition home or self-care (01) ==
LOC: 1 ACUTE 22:13
PROVIDERS: Emergency Medicine; ADMITTING PHYSICIAN Hospitalist; ATTENDING PHYSICIAN Internal Medicine; CONSULT PHYSICIAN Internal Medicine Cardiovascular Disease; EMERGENCY PHYSICIAN Emergency Medicine; FAMILY PHYSICIAN Internal Medicine
DX: R07.89 Other chest pain (principal); I25.10 Atherosclerotic heart disease of native coronary artery without angina pectoris; I10 Essential (primary) hypertension; E78.00 Pure hypercholesterolemia, unspecified; D68.51 Activated protein C resistance; E66.09 Other obesity due to excess calories; I25.2 Old myocardial infarction; I48.91 Unspecified atrial fibrillation; N40.0 Benign prostatic hyperplasia without lower urinary tract symptoms; Z11.52 Encounter for screening for COVID-19; Z68.34 Body mass index [BMI] 34.0-34.9, adult; Z79.82 Long term (current) use of aspirin; Z79.899 Other long term (current) drug therapy; Z86.711 Personal history of pulmonary embolism; Z86.718 Personal history of other venous thrombosis and embolism; Z82.49 Family history of ischemic heart disease and other diseases of the circulatory system; Z95.1 Presence of aortocoronary bypass graft; Z87.442 Personal history of urinary calculi
CPT/HCPCS: 71046; 80048; 80053; 80061; 83036; 83690; 84484; 85025; 85027; 87502; 87811; 93005; 93306; 99285; G0378; Q9957